=== PATIENT | male | born 1970 | race African-American/Black ===

== ENCOUNTER 2025-03-31 13:02 | Outpatient (CLI) | payer MEDICARE, MEDICAID, SELFPAY ==
--- NOTE | ~2025-03-31 | PE_ITS ---
EXAMINATION: PET_PETPSMAST_PT DATE: 03/31/2025 15:04 INDICATION: Prostate cancer TECHNIQUE: 4.54 mCi of Illucix Ga-[id number]) was administered i.v. Low dose computed tomog kerry (CT) images were acquired from the base of the brain to the base of the brain to the proximal t highs for attenuation correction and anatomic localization. Positron emission tomography (PET) images were acquired in the same distribution beginning 86 minutes after injection. Images including fused PET/CT images were reconstructed in axial, coronal, and sagittal planes. Automated exposure control t [employer] was employed. The dose-length product was 558.79mGy-cm. COMPARISON: None FINDINGS: Head/neck: Typical pattern of symmetric physiologic increased activity in the lacrimal, parotid and submandibula r glands as well as along the mucosa of the nasal and oral cavities, pharynx and hypopharynx. No path ologically enlarged cervical lymphadenopathy or suspicious foci of increased uptake in the visualized head or neck. Chest: Moderate emphysema with dependent atelectasis in bilateral lower lobes. 3 mm right lower lobe nodule without abnormal PSMA uptake. Heart size is normal. Atherosclerotic coronary artery calcific location . No pericardial effusion. Mildly aneurysmal ascending thoracic aorta measuring up to 4.2 cm in maxim al diameter. No pathologically enlarged or PSMA avid thoracic lymphadenopathy. Abdomen/pelvis/proximal thighs: Physiologic renal accumulation and excretion of activity in the kidneys, bladder and along portions o f ureters. Prostatomegaly measuring 4.2 x 3.8 cm. Small focus of increased uptake at the right breaker mechanic ior margin of the prostate with maximal SUV of 4.1. Normal degree and slightly heterogenous pattern o f increased uptake throughout the liver and spleen without radiologic correlate or dominant PSMA avid lesion. The gallbladder, pancreas and bilateral adrenal glands are normal. Moderate uptake scattered throughout the bowels with typical duodenal and proximal jejunal predominance and without radiologic correlate, also likely physiologic. Normal appendix. No other abnormal foci of increased uptake or p athologically enlarged lymphadenopathy in the abdomen, pelvis or proximal thighs. Musculoskeletal: No suspicious lytic, blastic or abnormally PSMA avid bone lesions. IMPRESSION: 1. Small focus of mild uptake at the left posterior aspect of the enlarged prostate consistent with m chhaya prostate cancer. No evident metastatic disease. 2. Moderate emphysema with 3 mm right lower lobe nodule without abnormal uptake. If the patient is lo w risk for lung cancer, no follow-up is needed. If the patient is high risk (i.e., history of smoking or asbestos or significant radiation exposure), optional follow-up chest CT could be considered at 1 2 months. 3. 4.2 cm ascending thoracic aortic aneurysm. Reviewed, dictated and finalized at location B. IMPRESSION: 1. Small focus of mild uptake at the left posterior aspect of the enlarged pros ragland consistent with memory prostate cancer. No evident metastatic disease. 2. Moderate emphysema with 3 mm right lower lobe nodule without abnormal uptake . If the patient is low risk for lung cancer, no follow-up is needed. If the pa tient is high risk (i.e., history of smoking or asbestos or significant radiati on exposure), optional follow-up chest CT could be considered at 12 months. 3. 4.2 cm ascending thoracic aortic aneurysm.
--- OUTSIDE RECORDS SUMMARY | 2025-03-31 13:56 | XMS_ITS | Clinical Summary ---
Author Organization [facility] Address [address] [place] [address] Care Team Providers Care Limo Driver Name Role Phone Unavailable Primary Care Provider Unavailabl e Source Comments [facility],non-owned Affiliates and Associated Physician Practices is amultiple site organization consisting of ambulatory clinics and hospital sitesin [place], [place], [place] and [place]. This disclosure is being madepursuant to the Care Everywhere program and may not contain all information available regarding this patient. Last updated 18.[facility] Allergies Active Allergy Reactions Criticality Noted Date Comments Penicillins Rash Medium 10/07/2016 Sulfa Drugs Other Medium 03/13/2011 Medications * Be aware that medications may not be up to date on this document. Alwaysverify current medications with the patient. amLODIPine (NORVASC) 10 MG tablet Take 10 mg by mouth once daily Active Cetirizine HCl (ZYRTEC PO) Active Immunizations Immunization Administration Dates Next Due iNFLUENZA VACCINE, RECOM-GRAY, QUADR. 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 Pulse - - Temperature 36.7 C (98 F) 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 Respiratory Rate - - Oxygen Saturation - - Inhaled Oxygen Concentration - - Weight 70 kg (154 lb 6 oz) 12/11/2021 1:35 PM CS T Height 170.2 cm (5' 7 ) 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 Body Mass Index 24.18 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 Plan of Treatment Health Maintenance Due Date Last Done Comments COLOGUARD (AGES 45-75) - COL ON CA SCREENING [address] COLONOGRAPHY - COLON CA SCREENING 1968 FIT - COLON CA SCREENING 1968 FLEX SIG - COLON CA SCREENING 1968 LIPID TESTING 1968 HIV SCREENING 1983 HEPATITIS C SCREENING 10/07/1986 DTAP/TDAP/TD VACCINES (1 - Tdap) 1987 HEPATITIS B VACCINE (1 of 3 - 19+ 3-dose series) 1987 PNEUMOCOCCAL VACCINE 50+ (1 of 1 - PCV) 2018 ZOSTER VACCINE (1 of 2) 2018 COVID-19 VACCINE ( - 2023-2 5 season) 2024 DEPRESSION SCREENING 12/02/2024 INFLUENZA VACCINE (Season Ended) 2025 12/11/19 22 COLONOSCOPY - COLON CA SCREENING 11/14/2031 11/14/20 21 Colorectal Cancer Screening 11/14/2031 HIB VACCINE Aged Out No longer eligi ble based on patient's age to complete this topic HPV VACCINE Aged Out No longer eligi ble based on patient's age to complete this topic MENINGOCOCCAL (Group B) VACC INE SHARED DECISION-MAKING Aged Out No longer eligibl e based on patient's age to complete this topic MENINGOCOCCAL GROUPS A/C/Y/W VACCINE Aged Out No longer eligible b ased on patient's age to complete this topic Insurance [employer]
--- OUTSIDE RECORDS SUMMARY | 2025-03-31 13:56 | XMS_ITS | Clinical Summary ---
Author Organization [facility] Address [address] [place] [address] Care Team Providers Care Process Maintenance Technician Name Role Phone Dawna Heredia PT Unavailable Unavailabl e Dony Mendoza OT Unavailable Unavailable Saravanan Cowan MD, Sundeep Pleitez Unavailable + Brooklyn Elizondo DO Unavailable [phone] Maik Leija MD Primary Care Provider + Nadine Marino MD Unavailable [phone] Allergies Active Allergy Reactions Criticality Noted Date Comments Penicillins Rash Medium 10/07/2016 Sulfa (Sulfonamide Antibiotics) Hives Medium 03/02 Medications atorvastatin (LIPITOR) 10 mg tabletIndication s:Cerebrovascula r accident (CVA) due to occlusion of left middle cerebral artery (HCC) Take 1 tablet (10 mg total) by mouth nightly 90 tablet 3 4 Active aspirin 81 mg chewable tabletIndication s:Cerebrovascula r accident (CVA) due to occlusion of left middle cerebral artery (HCC) Take 1 tablet (81 mg total) by mouth daily 90 tablet 3 4 Active cholecalciferol (VITAMIN D-3) 5,000 unit tabletIndication s:Vitamin D Deficiency Take 1 tablet (5,000 Units total) by mouth daily 90 tablet 3 4 Active Additional Information Patient taking differently:5,000 Units oralDaily (early AM), Indications: Vitamin D Deficiency, Informant: Self, Reported on 03/09/2025 amLODIPine (NORVASC) 10 mg tabletIndication s:Hypertension, essential Take 1 tablet (10 mg total) by mouth daily 90 tablet 3 4 Active multivit-min/fol ic/vit K/lycop (MEN'S MULTIVITAMIN ORAL)Indications :supplement Take 1 tablet by mouth every morning Active baclofen (LIORESAL) 10 mg tabletIndication s:Myelopathy (HCC) Take 1 tablet (10 mg total) by mouth 3 (three) times a day with meals 270 tablet 3 4 Active Additional Information Patient taking differently:10 mg oral 3 times daily with meals,Indications: Muscle Spasticity of Spinal Origin, Informant: Self, Reported on 03/09/2025 traZODone (DESYREL) 50 mg tabletIndication s:Insomnia secondary to chronic pain TAKE 1-2 TABLETS BY MOUTH NIGHTLY. 200 tablet 4 Active Additional Information Patient taking differently: 50 mg oral Nightly, Indications: insomnia associated with depression, Informant: Self, Reported on 03/09/2025 ginseng 100 mg capsuleIndicatio ns:supplement Take 500 mg by mouth as needed (supplement) Active ciprofloxacin (CIPRO) 500 mg tablet Take 1 tablet (500 mg total) by mouth 2 (two) times a day 6 tablet 5 Active predniSONE (DELTASONE) 20 mg tablet Take 2 tablets (40 mg) by mouth daily for 4 days, THEN 1.5 tablets (30 mg) daily for 4 days, THEN 1 tablet (20 mg) daily for 4 days. 18 tablet 5 025 Active Problems Problem Noted Date Diagnosed Date Elevated PSA 02/15/2025 Bilateral numbness and tingling of arms and legs 01/28/2025 Submandibular gland mass 12/03/2024 Bilateral inguinal hernia without obstruction or gangrene 11/19/2024 Umbilical hernia without obstruction and without gangrene 11/19/2024 Abnormality of gait and mobility 08/10/2024 Assessment & Plan (08/10/2024 12:23 AM CDT): - at risk for falls - here with walker, recommend consistent use of walker as assistive aid - has known myelopathy, followed by Neurology Mass of left submandibular region 05/07/2024 Assessment & Plan (08/10/2024 12:19 AM CDT): - recent diagnosis with lymphadenopathy noted on the left submandibular area physical examination - obtain CT of the soft tissue neck with results below, which recommended ultrasound soft tissue neck which was also obtained with results as shown below. - ENT consultation was recommended and was referred to ENT provider - obtained US Guided FNA as shown below he went to see the ENT provider after being referred for neck mass - mass of left submandibular region, he was seen on 05/07/2024, He agreed to the surgery, But then he deferred it to make it to his Dads anniversary, he was given antibiotics which did not resolve the swelling/mass. He needs to reach out to ENT to reschedule the previously planned surgery - Left Submandibular gland excision with Nerve Monitoring US Guided FNA 04/29/2024 Left submandibular gland lesion fine-needle aspiration under US guidance. The aspiration samples were submitted to surgical pathology . Cytology = Diagnosis: Submandibular gland, left, fine needle aspiration cytology: - Suspicious for malignancy ([place] category V). - See microscopic description. US Soft tissue neck 03/25 IMPRESSION: Approximately 1.1 cm lobulated solid nodule in the left submandibular gland. This is very suspicious for salivary gland neoplasm, possibly malignant. ENT consultation is recommended. Approximately 4 mm lymph node in the left neck at level 3. This shows no echogenic hilum. Whether this is reactive or neoplastic is unknown. Referral placed to ENT 03/25 CT Soft tissue neck 02/22 IMPRESSION: Emphysema. Very subtle fullness of the lower portion of the left submandibular gland perhaps due to a small mass. There are a few nonspecific lymph nodes in the left submandibular region and deep to the sternocleidomastoid muscle on the left. Ultrasound of the left submandibular gland and adjacent tissues is recommended for further evaluation. Recommend evaluation for annual lung cancer screening enrollment if the patient qualifies based on clinical factors and smoking history. Assessment & Plan (05/07/2024 2:31 PM CDT): Left Submandibular gland excision with Nerve Monitoring Anesthesia, bleeding, infection, injury to major and minor arteries, nerves and veins, scar formation, injury to marginal mandibular, hypoglossal and lingual nerve, benign versus malignant pathology and need for further treatment. Continue with Dental care Personal history of tobacco use 04/02/2024 Assessment & Plan (04/02/2024 12:20 PM CDT): Social History Tobacco Use Smoking Status Former Average packs/day: 0.2 packs/day for 13.0 years (2.6 ttl pk-yrs) Types: Cigars, Cigarettes Start date: 2004 Smokeless Tobacco Never - continue with abstinence Constipation 01/10/2024 Hypertension, essential 01/06/2024 Assessment & Plan (08/05/2024 12:32 PM CDT): Blood Pressure Management BP Readings from Last 3 Encounters: 08/05/24 110/78 07/28/24 114/79 05/07/24 131/88 Chronic condition Status - is adequately controlled. Current medications are: Amlodipien 10 mg daily Patient is compliant with medications. Patient denies any side effects or adverse side effects from the medication/s. Follow a low salt diet Monitor blood pressure regularly at home The ASCVD Risk score (Ligia SERRANO, et al., 2019) failed to calculate for the following reasons: The patient has a prior NM or stroke diagnosis Lab Results Component Value Date LDLCALC 84 04/02/2024 Lab Results Component Value Date GLUCOSE 99 04/02/2024 CALCIUM 9.3 04/02/2024 SODIUM 140 04/02/2024 POTASSIUM 4.0 04/02/2024 CO2 24 04/02/2024 CHLORIDE 107 04/02/2024 BUNSER 11 04/02/2024 CREATININE 0.88 04/02/2024 Assessment & Plan (04/02/2024 12:07 PM CDT): Blood Pressure Management BP Readings from Last 3 Encounters: 04/02/24 110/80 01/06/24 120/70 09/27/23 127/90 Chronic condition Status - is adequately controlled. Current medications are: Amlodipien 10 mg daily Patient is compliant with medications. Patient denies any side effects or adverse side effects from the medication/s. Follow a low salt diet Monitor blood pressure regularly at home The ASCVD Risk score (Ligia SERRANO, et al., 2019) failed to calculate for the following reasons: The patient has a prior NM or stroke diagnosis Lab Results Component Value Date LDLCALC 113 08/16/2023 Lab Results Component Value Date GLUCOSE 99 06/25/2023 CALCIUM 8.7 06/25/2023 SODIUM 142 06/25/2023 POTASSIUM 3.7 06/25/2023 CO2 26 06/25/2023 CHLORIDE 107 06/25/2023 BUNSER 9 06/25/2023 CREATININE 0.85 06/25/2023 Assessment & Plan (01/06/2024 8:57 AM INSULATION PACKER): Blood Pressure Management BP Readings from Last 3 Encounters: 01/06/24 120/70 09/27/23 127/90 07/15/23 117/76 Chronic condition Status - is adequately controlled. Current medications are: Amlodipien 10 mg daily Patient is compliant with medications. Patient denies any side effects or adverse side effects from the medication/s. Follow a low salt diet Monitor blood pressure regularly at home The ASCVD Risk score (Ligia SERRANO, et al., 2019) failed to calculate for the following reasons: The patient has a prior NM or stroke diagnosis Lab Results Component Value Date LDLCALC 113 08/16/2023 Lab Results Component Value Date GLUCOSE 99 06/25/2023 CALCIUM 8.7 06/25/2023 SODIUM 142 06/25/2023 POTASSIUM 3.7 06/25/2023 CO2 26 06/25/2023 CHLORIDE 107 06/25/2023 BUNSER 9 06/25/2023 CREATININE 0.85 06/25/2023 Myelopathy 01/06/2024 Assessment & Plan (08/10/2024 12:19 AM CDT): - fChronic condition, not at goal - per Neurology progressive myelopathy and stiffness since Jan 2022, MRI with a progressive lateral tractopathy. Treated with IV steroids and IVIG in April 2022. Exam with near full recovery aside from some lower back stiffness. He is on baclofen and Valium for the stiffness. He received 2 of 4 on the monthly IVIG. I am not sure why he was unable to complete the 3rd and 4th dose of IVIG and suggested he contact [facility] to see if he could still receive these - currently prescribed Baclofen 10 mg TID per Neurology - established with neurology at [facility] - Dr. Ahmadi - he wants to get back on IVIG treatments but reportedly had palmar skin peeling in prrior IVIG so being held - states he was even evaluated at [place] for this - has had significant recovery overall but has ongoing back pain - no longer on Cymbalta --> removed from medication list - reports in past has tried other medications Lyrica, Gabapentin which he did not tolerate - continue current management per neurology Assessment & Plan (04/13/2024 8:57 AM CDT): - following with Neurology - Dr. Coe - per Neurology progressive myelopathy and stiffness since Jan 2022, MRI with a progressive lateral tractopathy. Treated with IV steroids and IVIG in April 2022. Exam with near full recovery aside from some lower back stiffness. He is on baclofen and Valium for the stiffness. He received 2 of 4 on the monthly IVIG. I am not sure why he was unable to complete the 3rd and 4th dose of IVIG and suggested he contact [facility] to see if he could still receive these - currently prescribed Baclofen 20mg TID, no longer on Valium 5mg TID - he wants to establish with neurology at [facility], referral placed and has an appointment for 07/2024 - he wants to get back on IVIG treatments - states he was even evaluated at [place] for this - has had significant recovery overall - he was on Meloxicam and Duloxetine in past for pain in back, also tried Pregabalin 50 mg TID in the past --> restarted Cymbalta on prior visit - continue current management Assessment & Plan (01/10/2024 5:56 AM INSULATION PACKER): - following with Neurology - Dr. Coe - per Neurology progressive myelopathy and stiffness since Jan 2022, MRI with a progressive lateral tractopathy. Treated with IV steroids and IVIG in April 2022. Exam with near full recovery aside from some lower back stiffness. He is on baclofen and Valium for the stiffness. He received 2 of 4 on the monthly IVIG. I am not sure why he was unable to complete the 3rd and 4th dose of IVIG and suggested he contact [facility] to see if he could still receive these - currently prescribed Baclofen 20mg TID, Valium 5mg TID but not on valium 5 mg TID at this time - he wants to establish with neurology at [facility] - he wants to get back on IVIG treatments - states he was even evaluated at [place] for this - has had significant recovery overall - he was on Meloxicam and Duloxetine in past for pain in back, also tried Pregabalin 50 mg TID in the past --> will restart Cymbalta Vitamin D deficiency 01/06/2024 Assessment & Plan (08/05/2024 12:33 PM CDT): - chronic, better controlled - noted to have vitamin D deficiency on - most recent Vitamin D level is as shown below - currently back on Vitamin D3 5000IU daily - continue with current management Lab Results Component Value Date 25HYDROVITD 36 04/02/2024 25HYDROVITD 16 (L) 08/16/2023 Assessment & Plan (01/06/2024 9:12 AM INSULATION PACKER): - chronic, better controlled - noted to have vitamin D deficiency on - most recent Vitamin D level is as shown below - was on Vitamin D3 50,000 international units weekly - restart Vitamin D3 5000IU daily - recheck labs Lab Results Component Value Date 25HYDROVITD 16 (L) 08/16/2023 Lymphadenopathy of head and neck 01/06/2024 Assessment & Plan (05/08/2024 5:41 PM CDT): Left Submandibular gland excision with Nerve Monitoring Anesthesia, bleeding, infection, injury to major and minor arteries, nerves and veins, scar formation, injury to marginal mandibular, hypoglossal and lingual nerve, benign versus malignant pathology and need for further treatment. Continue with Dental care Assessment & Plan (04/13/2024 9:01 AM CDT): - recent diagnosis with lymphadenopathy noted on the left submandibular area physical examination - obtain CT of the soft tissue neck with results below, which recommended ultrasound soft tissue neck which was also obtained with results as shown below. - ENT consultation was recommended so ENT referral has been placed - order placed for US guided FNA of solid nodule so that results are available for ENT provider US Soft tissue neck 03/25 IMPRESSION: Approximately 1.1 cm lobulated solid nodule in the left submandibular gland. This is very suspicious for salivary gland neoplasm, possibly malignant. ENT consultation is recommended. Approximately 4 mm lymph node in the left neck at level 3. This shows no echogenic hilum. Whether this is reactive or neoplastic is unknown. Referral placed to ENT 03/25 CT Soft tissue neck 02/22 IMPRESSION: Emphysema. Very subtle fullness of the lower portion of the left submandibular gland perhaps due to a small mass. There are a few nonspecific lymph nodes in the left submandibular region and deep to the sternocleidomastoid muscle on the left. Ultrasound of the left submandibular gland and adjacent tissues is recommended for further evaluation. Recommend evaluation for annual lung cancer screening enrollment if the patient qualifies based on clinical factors and smoking history. Assessment & Plan (01/10/2024 5:55 AM INSULATION PACKER): - new, noted on left submandibular area - offered options with short term re-evaluation given recent finding vs imaging given he first noticed it 3-4 days ago, patient would like to proceed with imaging and be aggressive about it as he has a friend who was diagnosed with cancer, order placed for imaging, see orders placed Chronic bilateral low back pain without sciatica 05/23/2022 Lumbar radiculopathy 05/23/2022 DDD (degenerative disc disease), lumbar 05/23/20 Degenerative lumbar spinal stenosis 05/23/2022 Insomnia secondary to chronic pain 05/23/2022 Assessment & Plan (08/05/2024 12:44 PM CDT): - chronic condition, stable status/well controlled - currently on Trazodone 50 mg nightly as needed, take 1-2 nightly - continue current management Assessment & Plan (01/06/2024 9:10 AM INSULATION PACKER): - chronic condition, stable status - currently on Trazodone 50 mg nightly as needed, take 1-2 nightly - continue current management Lumbar facet arthropathy 05/23/2022 Spinal cord disorder 04/26/2022 Cervical disc disorder with radiculopathy of mid-cervical region 03/19/2022 Cerebrovascular accident (CV A) due to occlusion of middle cerebral artery 02/22/2022 Assessment & Plan (08/05/2024 12:38 PM CDT): - chronic condition, stable/controlled - hx of CVA, around 2020 - currently on Atorvastatin 10 mg nightly and aspirin 81 mg daily - BP is well controlled - continue with abstinence from tobacco use - continue current management MRI brain 01/2022 IMPRESSION: Subacute lacunar infarct in the posterior limb left internal capsule. Lab Results Component Value Date CHOL 153 04/02/2024 CHOL 170 08/16/2023 CHOL 144 02/21/2022 Lab Results Component Value Date HDL 59 04/02/2024 HDL 40 08/16/2023 HDL 37 (L) 02/21/2022 Lab Results Component Value Date LDLCALC 84 04/02/2024 LDLCALC 113 08/16/2023 LDLCALC 90 02/21/2022 LDL 115 07/27/2015 Lab Results Component Value Date TRIG 51 04/02/2024 TRIG 85 08/16/2023 TRIG 86 02/21/2022 Assessment & Plan (04/13/2024 8:50 AM CDT): - hx of CVA, around 2020 - currently on Atorvastatin 20 mg nightly and aspirin 81 mg daily --> restarted medication on last visit - BP is well controlled - continue with abstinence from tobacco use Lab Results Component Value Date LDLCALC 84 04/02/2024 MRI brain 01/2022 IMPRESSION: Subacute lacunar infarct in the posterior limb left internal capsule. Assessment & Plan (01/06/2024 1:05 PM INSULATION PACKER): - hx of CVA, around 2020 - he is no longer on Atorvastatin 20 mg nightly --> restart medication - currently has not been on aspirin 81 mg daily --> restart medication - will review chart - BP is well controlled MRI brain 01/2022 IMPRESSION: Subacute lacunar infarct in the posterior limb left internal capsule. 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 Severe malnutrition 05/17/2022 01/06/20 24 Screening for malignant neoplasm of colon 09/16/2021 01/10/2024 Overview (09/16/2021): Added automatically from request for surgery [id number] Hemorrhoids 08/23/2021 01/06/2024 Overview (08/23/2021): Added automatically from request for surgery [id number] Abscess of groin 03/19/2012 01/10/2024 Encounters Date Type Department Care Team Description 03/11/2025 2:40 PM CDT Lab [address] [address] 03/09/2025 12:07 PM CDT Anesthesia Event [facility] Operating Room [address] [place] [address] Fracisco Antonio MD 03/09/2025 12:05 PM CDT - 03/09/2025 1:05 PM CDT Surgery [facility] Operating Room [address] [place] [address] Mitchell Marley MD TRANSRECTAL ULTRASOUND FUSION GUIDED PROSTATE BIOPSY 03/09/2025 10:02 AM CDT - 03/09/2025 2:04 PM CDT Hospital Encounter [facility] Operating Room [address] [place] [address] Mitchell Marley MD Elevated PSA Discharge Disposition: Discharge to home or self care 03/04/2025 Orders Only [facility] Department of Otolaryngology Head-Neck Division [address] [place] [address] Maik Roland MD 03/03/2025 Telephone [facility] ([facility]) - [facility] ENT [address] [facility] 11th [place] [address] [place] [address] Jess Lambert MS 02/10/2025 Telephone [facility] [address] [facility] [address] [place] [phone] Cayden Ahamdi MD 02/05/2025 12:47 PM INSULATION PACKER - 02/05/2025 11:59 PM INSULATION PACKER Hospital Encounter [facility] [address] [place] [address] Myelopathy (HCC) Discharge Disposition: Discharge to home or self care 02/05/2025 12:47 PM INSULATION PACKER - 02/05/2025 11:59 PM INSULATION PACKER Hospital Encounter [facility] 1 [place] [address] Myelopathy (HCC) Discharge Disposition: Discharge to home or self care 01/28/2025 1:30 PM INSULATION PACKER Office Visit [facility] [address] [facility] [address] [place] [address] Cayden Ahmadi MD Myelopathy (HCC) (Primary Dx); Chronic bilateral low back pain without sciatica; Bilateral numbness and tingling of arms and legs 01/18/2025 4:00 PM INSULATION PACKER Office Visit [facility]) - [facility] ENT [address] [facility] [address] [place] [id number] Maik Roland MD Mass of left submandibular region (Primary Dx) 01/07/2025 2:15 PM INSULATION PACKER Office Visit [facility] Surgery [address] [facility] [address] [place] [address] Nadine Marino MD Postop check (Primary Dx) 01/04/2025 11:21 AM INSULATION PACKER - 01/04/2025 11:59 PM INSULATION PACKER Hospital Encounter [facility] [address] [id number] Cancer of submandibular gland (HCC) Discharge Disposition: Discharge to home or self care from Last 3 Months Immunizations Immunization Administration Dates Next Due Influenza, Quadrivalent, Rec ombinant, Egg Free, Preservative Free, Intramuscular 12/11/2021 Influenza, Quadrivalent, Split, Intramuscular Influenza, Quadrivalent, Spl it, Preservative Free, Intramuscular 01/06/2024 Influenza, Trivalent, Preservative Free, Intramu scular 01/02/2011 Influenza, Unspecified 09/01/2021 Pneumococcal Polysaccharide PPV23 01/02/2011 Surgical History Surgery Date Site/Laterality Comments HEMORRHOID SURGERY 12/02/2020 - 12/01/2021 LEG SURGERY 12/02/1981 - 12/01/1982 Left compound fracture repair COLONOSCOPY 12/02/2020 - 12/01/2021 HERNIA REPAIR 12/12/2024 Medical History Medical History Date Comments Hypertension Stroke (HCC) 2021 TIA - no residua l Penile condyloma acuminata 2012 History of fracture of leg left as a kid - compound fracture Umbilical hernia without obs truction and without gangrene Bilateral inguinal hernia wi thout obstruction or gangrene, recurrence not specified Myelopathy (HCC) Family History Medical History Relation Name Comments Prostate cancer Brother Prostate cancer Father Colon cancer Father's Brother Hypertension Maternal Grandmother Hypertension Mother Anesthesia problems Neg Hx Autoimmune disease Neg Hx Gait disorder Neg Hx Sarcoidosis Neg Hx Thyroid disease Neg Hx Relation Name Status Comments Brother Alive Father Father's Brother Maternal Grandmother Mother Alive Social History Tobacco Use Types Packs/Day Years Used Date Smoking Tobacco: Former Cigarettes Q uit: 2017 Cigars Passive Smoke Exposure: Never Smokeless Tobacco: Never Tobacco Cessation:Counseling Given: Not Answered Social Connection and Isolat ion Panel [NHANES] Answer Date Recorded In a typical week, how many times do you talk on the phone with family, friends, or neighbors? More than three times a week 04/18/2022 How often do you get togethe r with friends or relatives? More than three times a week 04/18/2022 How often do you attend chur ch or worship services? Never 04/18/2022 Do you belong to any clubs o r organizations such as adventism groups, unions, fraternal or athletic groups, or school groups? No 04/18/2022 How often do you attend meet ings of the clubs or organizations you belong to? Never 04/18/2022 Are you , , di vorced, , never , or living with a partner? Never 04/18/2022 AUDIT-C Answer Date Recorded Q1: How often do you have a drink containing alcohol? Never 03/09/2025 Q2: How many drinks containi ng alcohol do you have on a typical day when you are drinking? Patient does not drink Q3: How often do you have si x or more drinks on one occasion? Never 03/09/2025 Overall Financial Resource Strain (CARDIA) Answe r Date Recorded How hard is it for you to pa y for the very basics like food, housing, medical care, and heating? Not very hard 04/18/2022 PHQ-2 Answer Date Recorded PHQ-2 Total Score (If total score is 3 or more points, staff should administer the PHQ-9) 0 08/05/2024 [facility] - Occupational Stress Questionnaire Answer Date Recorded Do you feel stress - tense, restless, nervous, or anxious, or unable to sleep at night because your mind is troubled all the time - these days? Rather much 02/23/2022 Hunger Vital Sign Answer Date Recorded Within the past 12 months, y ou worried that your food would run out before you got the money to buy more. Never true 03/06/20 23 Within the past 12 months, t he food you bought just didn't last and you didn't have money to get more. Never true 03/06/2023 PRAPARE - Transportation Answer Date Re corded In the past 12 months, has l ack of transportation kept you from medical appointments or from getting medications? No 04/01 In the past 12 months, has l ack of transportation kept you from meetings, work, or from getting things needed for daily living? No 04/18/2022 Housing Stability Vital Sign Answer Judah e Recorded In the last 12 months, was t here a time when you were not able to pay the mortgage or rent on time? No 02/23/2022 In the last 12 months, how many places have you lived? 1 02/23/2022 In the last 12 months, was t here a time when you did not have a steady place to sleep or slept in a retirement (including now)? No 02/23/2022 Personal Safety Answer Date Recorded Have you ever been in or are you currently in a harmful physical or emotional relationship or is someone making you feel afraid or unsafe? Denies 03/09/2025 Sex and Gender Information Value Date Recorded Sex Assigned at Not on file Legal Sex Male 1:55 AM INSULATION PACKER Gender Identity Not on file Sexual Orientation Not on file Obstetrics History Last Filed Vital Signs Vital Sign Reading Time Taken Comments Blood Pressure 150/95 03/09/2025 1:40 PM CDT Pulse 80 03/09/2025 1:40 PM CDT Temperature 36.6 C (97.8 F) 03/09/2025 1:40 PM CDT Respiratory Rate 20 03/09/2025 1:40 PM CDT Oxygen Saturation 100% 03/09/2025 1:40 PM CDT Inhaled Oxygen Concentration - - Weight 59.9 kg (132 lb 0.9 oz) 03/09/2025 10:12 AM CDT Height 170.2 cm (5' 7 ) 03/09/2025 10:12 AM CDT Body Mass Index 20.68 03/09/2025 10:12 AM CDT Plan of Treatment Upcoming Encounters Date Type Department Care Team (Late st Contact Info) Description 04/16/2025 1:45 PM CDT Hospital Encounter [facility] [address] [place] [phone] Maik Roland MD [address] [place], [place] [id number] 04/16/2025 1:45 PM CDT Anesthesia Event [facility] [place] [id number] Kathie Noble, ENGINEERING LECTURER [address] [facility] [id number] [place] [address] 04/16/2025 1:45 PM CDT - 04/16/2025 4:55 PM CDT Surgery [facility] [address] [place] [phone] Maik Roland MD [address] [place] [address] EXCISION SUBMANDIBULAR GLAND Scheduled Procedures Name Priority Associated Diagnoses Date/Ti me EXCISION SUBMANDIBULAR GLAND Submandibular gland mass 04/16/2025 1:45 PM CDT Health Maintenance Due Date Last Done Comments Hepatitis C Screening 1970 DTaP/Tdap/Td Vaccine (1 - Tdap) 1979 Zoster Vaccine (1 of 2) 2018 Covid-19 Vaccine (3 - season) 2024 08/22/2021, 07/30/2021 Influenza Vaccine (Season Ended) 2025 01/06/2024, 12/11/2021, 09/01/2021, Additional history exists Depression Screening 08/05/2025 08/05/2024, 04/02/2024, 01/06/2024, Additional history exists Regular Well Visit/Exam 18-64 08/05/2025 08/05/2024 Prostate Cancer Screening-PSA 10/26/2026 10/26/2024, 08/16/2023, 04/13/2022 Colon Cancer Screening-Colonoscopy 11/14/2031 11/14/2021 Pneumococcal vaccine <65 Aged Out 01/02/2011 No longer eligible based on patient's age to complete this topic Hepatitis B Screening Completed 02/27/2019 , 09/29/2018, 09/03/2018 Colon Cancer Screening-CT Colonography Discontinued 11/14/2021 Colon Cancer Screening-DNA Stool Discontinued 11/14/2021 Colon Cancer Screening-FIT Discontinued 11/14/2021 Colon Cancer Screening-Sigmoidoscopy Discontinued 11/14/2021 Medical Devices Implanted Type Area Form Worker Device Identifier Shelf Expiration Date Model / Serial / Lot [employer] Progrip [id number] Self Fixate Flat Sheet Mesh Surgical Gita Pet Latex Free [id number] - [id number] Implanted:Qty : 1 on 12/14/2024 by Nadine Marino MD at [facility] Left: Inguinal [employer] [id number] 01/01/2027 [id number] / / [id number] [employer] Progrip [id number] Self Fixate Flat Sheet Mesh Surgical Gita Pet Latex Free [id number] - [id number] Implanted:Qty : 1 on 12/14/2024 by Nadine Marino MD at [facility] Right: Inguinal [employer] [id number] 01/01/2027 [id number] / / [id number] Procedures Procedure Name Priority Date/Time Associated Diagnosis Comments EGFR Routine 03/11/2025 2:39 PM CDT URINALYSIS, MICROSCOPIC ONLY Routine 03/11/2025 2:39 PM CDT DIFFERENTIAL AUTO Routine 03/11/2025 2:3 9 PM CDT CBC WITH AUTO DIFFERENTIAL Routine 03/11/2025 2:39 PM CDT COMPREHENSIVE METABOLIC PANEL Routine 03/11/2025 2:39 PM CDT URINALYSIS AND REFLEX TO MICROSCOPIC AND CULTURE Routine 03/11/2025 2:39 PM CDT SURGICAL PATHOLOGY Routine 03/09/2025 1: 20 PM CDT Elevated PSA URONAV GUIDED PROSTATE BIOPSY 03/09/2025 12:07 PM CDT Elevated PSA Special Needs URONAV FORTEC CONF#[id number] MRI THORACIC SPINE W WO CONTRAST Schedule BEHZAD, Read Routine (Patient lives out of area) 02/05/2025 2:25 PM INSULATION PACKER Myelopathy (HCC) MRI LUMBAR SPINE W WO CONTRAST Schedule BEHZAD, Read Routine (Patient lives out of area) 02/05/2025 2:10 PM INSULATION PACKER Myelopathy (HCC) CT SOFT TISSUE NECK W CONTRAST Schedule BEHZAD, Read Routine (Patient lives out of area) 01/04/2025 12:06 PM INSULATION PACKER Cancer of submandibular gland (HCC) PSA SCREEN Routine 10/26/2024 9:17 AM INSULATION PACKER COLONOSCOPY 11/14/2021 1:05 PM INSULATION PACKER from Last 3 Months or Most Recently Relevant to Health Maintenance Results * eGFR (03/11/2025 2:39 PM CDT) eGFR >90 >=60 mL/min/1. 73 m2 Comment: Interpretive Data Reference Interval Normal >/= 90 mL/min/1.73m2 Mildly decreased* 60 - 89 mL/min/1.73m2 Mildly to moderately decreased 45 - 59 mL/min/1.73m2 Moderately to severely decreased 30 - 44 mL/min/1.73m2 Severely decreased 15 - 29 mL/min/1.73m2 Kidney Failure < 15 mL/min/1.73m2 *Relative to young adult level Estimated glomerular filtration rate is determined by the 2020 CKD-EPI equation recommended by the National Kidney Foundation (A Unifying Approach to GFR Estimation: Recommendations of the NKF-ASK Task Force on Reassessing the Inclusion of Race in Diagnosing Kidney Disease, JASN 2020). The CKD-EPI equation should not be used for patients with unstable renal function and has not been validated in children and those over 70. Current interpretive data was last reviewed 2021. Blood 03/11/2025 2:39 PM CDT 03/11/2025 8:21 PM CDT us Maik Leija MD LAB BLOOD ORDERABLES Fin al Result [facility] [address] Department of Laboratories [place], [place] [id number] * Differential, auto (03/11/2025 2:39 PM CDT) Neutrophil abs 3.66 1.50 - 6.50 K/cumm Imm gran abs 0.02 0.00 - 0.10 K/cumm [facility] Lymphocyte abs 2.88 0.80 - 3.30 K/cumm [facility] Monocyte abs 0.59 0.20 - 0.80 K/cumm [facility] Eosinophil abs 0.12 0.00 - 0.50 K/cumm [facility] Basophil abs 0.07 0.00 - 0.10 K/cumm [facility] Neutrophil pct 49.9 % [facility] Comment: Interpretive Data Percent cell count reference ranges are not reported, since discordance with absolute values may lead to misinterpretation of CBC data. Current Interpretive Data was last revised on 2018. Imm gran pct 0.3 % [facility] Comment: Interpretive Data Percent cell count reference ranges are not reported, since discordance with absolute values may lead to misinterpretation of CBC data. Current Interpretive Data was last revised on 2018. Lymphocyte pct 39.2 % [facility] Comment: Interpretive Data Percent cell count reference ranges are not reported, since discordance with absolute values may lead to misinterpretation of CBC data. Current Interpretive Data was last revised on 2018. Monocyte pct 8.0 % [facility] Comment: Interpretive Data Percent cell count reference ranges are not reported, since discordance with absolute values may lead to misinterpretation of CBC data. Current Interpretive Data was last revised on 2018. Eosinophil pct 1.6 % [facility] Comment: Interpretive Data Percent cell count reference ranges are not reported, since discordance with absolute values may lead to misinterpretation of CBC data. Current Interpretive Data was last revised on 2018. Basophil pct 1.0 % [facility] Comment: Interpretive Data Percent cell count reference ranges are not reported, since discordance with absolute values may lead to misinterpretation of CBC data. Current Interpretive Data was last revised on 2018. Blood 03/11/2025 2:39 PM CDT 03/11/2025 2:39 PM CDT Maik Leija MD LAB BLOOD ORDERABLES [facility] al Result [facility] [address] Department [place] [address] * (ABNORMAL) Urinalysis reflex to microscopic and culture Urine (03/11/2025 2:39 PM CDT) Color, ur Straw Yellow Clarity, ur Clear Clear [facility] Specific gravity, ur 1.008 1.003 - 1.030 [facility] pH, urine 6.0 [facility] Comment: Interpretive Data U rine pH is affected by diet, medications, systemic acid-base disturbances, and renal tubular function. pH may affect urinary stone formation. For example, urine pH below 6.0 may help reduce the tendency for calcium phosphate stones and pH greater than 6.0 may reduce the tendency for uric acid stone formation. Source: [facility] Current Interpretive Data was last revised on 2017 Protein, ur ql Negative Negative [facility] Glucose, ur ql Negative Negative [facility] Ketones, ur Negative Negative [facility] Bilirubin, ur Negative Negative [facility] Blood, ur Trace(A) Negative [facility] Urobilinogen, ur <2.0 <2.0 mg/dL [facility] Nitrite, ur Negative Negative [facility] Leukocyte esterase, ur Negative Negative [facility] UA reflex comment Reflex to microscopic UA will be performed. [facility] Urine 03/11/2025 2:39 PM CDT 03/11/2025 2:39 PM CDT Maik Leija MD LAB MICROBIOLOGY - GENER AL ORDERABLES Final Result Performing Organization Address [facility] Co de Phone Number [place] [address] Department [place] [address] * (ABNORMAL) CBC with auto differential (03/11/2025 2:39 PM CDT) WBC 7.34 3.80 - 9.90 K/cumm Hgb 15.6 13.0 - 17.5 g/dL [facility] Hct 49.2 38.9 - 50.3 % [facility] Plt 364 150 - 400 K/cumm [facility] MPV 10.6 9.1 - 12.3 fL [facility] RBC 5.68 4.30 - 5.80 M/cumm [facility] MCV 86.6 81.3 - 96.4 fL [facility] MCH 27.5 27.1 - 33.3 pg [facility] MCHC 31.7(L) 32.3 - 35.7 g/dL [facility] RDW CV 13.2 11.1 - 14.9 % [facility] RDW SD 41.4 35.7 - 48.1 fL [facility] NRBC abs 0.00 0.00 - 0.01 K/cumm [facility] Blood 03/11/2025 2:39 PM CDT 03/11/2025 2:39 PM CDT us Maik Leija MD LAB BLOOD ORDERABLES Fin al Result Performing Organization Address [facility] Co de Phone Number [place] [address] Department [place] [address] * Urinalysis, microscopic only (03/11/2025 2:39 PM CDT) WBC, ur 0-5 0 - 5 /HPF RBC, ur 0-2 0 - 2 /HPF [facility] Culture Reflex Comment Reflex conditions for urine culture (WBC >10) not met. [facility] Urine 03/11/2025 2:39 PM CDT 03/11/2025 6:55 PM CDT Maik Leija MD LAB URINE ORDERABLES Fin al Result [facility] [address] Department [place] [address] * Comprehensive metabolic panel (03/11/2025 2:39 PM CDT) Sodium 139 135 - 145 mmol/L Potassium, pl 3.9 3.3 - 4.9 mmol/L [facility] Chloride 104 97 - 110 mmol/L [facility] CO2 27 22 - 32 mmol/L [facility] Anion gap 8 2 - 15 mmol/L [facility] BUN 9 6 - 25 mg/dL [facility] Creatinine 0.82 0.80 - 1.30 mg/dL [facility] Glucose 75 70 - 199 mg/dL [facility] Comment: Interpretive Data Fasting glucose >/= 126 mg/dl is diagnostic for diabetes. Fasting is defined as no caloric intake for at least 8 hours. Fasting glucose between 100 mg/dl to 125 mg/dl is diagnostic of prediabetes. In a patient with classic symptoms of hyperglycemia or hyperglycemic crisis, a random glucose >/= 200 mg/dl is diagnostic for diabetes. In the absence of unequivocal hyperglycemia, results should be confirmed by repeat testing. The classification and Diagnosis of Diabetes Diabetes Care 202; 46: S19-S40. Current interpretive data was last revised 2022. Calcium 9.3 8.5 - 10.3 mg/dL [facility] Bilirubin, total 0.5 0.1 - 1.2 mg/dL [facility] Protein, pl 7.2 6.5 - 8.5 g/dL [facility] Albumin 4.2 3.5 - 5.0 g/dL [facility] Alk phos 86 40 - 130 Units/L [facility] ALT 23 7 - 55 Units/L [facility] AST 29 10 - 50 Units/L [facility] Blood 03/11/2025 2:39 PM CDT 03/11/2025 2:39 PM CDT us Maik Leija MD LAB BLOOD ORDERABLES Fin al Result [facility] [address] Department [place] [address] * Surgical pathology (03/09/2025 1:20 PM CDT) Tissue (Prostate, Needle Biopsy) 03/09/2025 11:56 AM CDT Tissue specimen (specimen) (Prostate, Needle Biopsy) 03/09/2025 11:56 AM CDT Tissue specimen (specimen) (Prostate, Needle Biopsy) 03/09/2025 11:56 AM CDT Tissue specimen (specimen) (Prostate, Needle Biopsy) 03/09/2025 11:56 AM CDT Tissue specimen (specimen) (Prostate, Needle Biopsy) 03/09/2025 11:56 AM CDT Tissue specimen (specimen) (Prostate, Needle Biopsy) 03/09/2025 11:56 AM CDT Tissue specimen (specimen) (Prostate, Needle Biopsy) 03/09/2025 11:56 AM CDT Tissue specimen (specimen) (Prostate, Needle Biopsy) 03/09/2025 11:56 AM CDT Tissue specimen (specimen) (Prostate, Needle Biopsy) 03/09/2025 11:56 AM CDT Tissue specimen (specimen) (Prostate, Needle Biopsy) 03/09/2025 11:56 AM CDT Tissue specimen (specimen) (Prostate, Needle Biopsy) 03/09/2025 11:56 AM CDT Tissue specimen (specimen) (Prostate, Needle Biopsy) 03/09/2025 11:56 AM CDT Tissue specimen (specimen) (Prostate, Needle Biopsy) 03/09/2025 11:59 AM CDT Narrative PATHOLOGY REPLACED BY [facility] ([facility]) - 03/12/2025 1:21 PM CDT EPIC results best viewed via link to PDF [facility] Department of Pathology [address] [place] [id number] Note to Patients: This report may contain a detailed description of human tissue sent by a health care provider to the laboratory for pathologic evaluation. The content of this report is essential for diagnosis and may provide important critical findings. This information may be unfamiliar to patients to review without a medical professional present. It is advised that the patient review this report in the presence of a health care provider who can answer questions and explain the details. Final Report Patient Name: CLIVE RIOJAS Address: [address] [place] [id number] Gender: M : 1970 (Age: 54) Service: Surgery Location: [facility] Hospital #: [id number] Patient Type: [facility] Taken: 03/09/2025 Received: 03/10/2025 Accessioned: 03/10/2025 Reported: 03/12/2025 Physician(s):Mitchell Vieira MD Diagnosis: A. Prostate, right lateral base, needle biopsy- Benign prostate tissue B. Prostate, right medial base, needle biopsy- Benign prostate tissue C. Prostate, right lateral mid, needle biopsy- Benign prostate tissue D. Prostate, right medial mid, needle biopsy- Benign prostate tissue E. Prostate, right lateral apex, needle biopsy- Benign prostate tissue F. Prostate, right medial apex, needle biopsy- Prostate tissue G. Prostate, left lateral base, needle biopsy- Prostatic acinar adenocarcinoma, Nimisha grade 3+3=6, grade group 1 Minute focus < 1 mm in 13mm core H. Prostate, left medial base, needle biopsy- Prostatic acinar adenocarcinoma, [employer] grade 3+4=7, grade group 2 4mm focus in 20mm core; Gr 4 approximately 50% total tumor volume I. Prostate, left lateral mid, needle biopsy- Benign prostate tissue J. Prostate, left medial mid, needle biopsy- Benign prostate tissue K. prostate, left lateral apex, needle biopsy- Benign prostate tissue L. Prostate, left medial apex, needle biopsy- Benign prostate tissue M. Prostate, region of interest, needle biopsy- Prostatic acinar adenocarcinoma, [employer] grade 4+3=7, grade group 3 2 mm focus in fragmented 2.3 mm core fragments; grade 4 approximately 60% total tumor volume Nadege Canseco M.D. Report Electronically Reviewed and Signed Out By Nadege Canseco M.D. 03/12/2025 13:21:17 Specimen(s) Received: A: Right lateral base B: Right medial base C: Right lateral mid D: Right medial mid E: Right lateral apex F: Right medial apex G: Left lateral base H: Left medial base I: Left lateral mid J: Left medial mid K: Left lateral apex L: Left medial apex M: Prostate biopsy - region of interest Microscopic Description: Microscopic examination corroborates the diagnosis. PIN4 IHC cocktail was performed on parts B, C, G, H, K and M to facilitate each diagnosis. Dr. Ackerman has reviewed select portions of this case and concurs with the interpretation. Clinical History: Elevated PSA. Transrectal ultrasound fusion guided prostate biopsy - Uronav Fortec. Gross Description: The specimen is submitted in thirteen containers labeled CLIVE RIOJAS . A. The first container is labeled right lateral base . It is 1 core of womack tissue measuring 1 cm. Entirely in A. B. The second container is labeled right medial base . It is 1 core of womack tissue measuring 1.5 cm. Entirely in B. C. The third container is labeled right lateral mid . It is 1 core of womack tissue measuring 1.0 cm. Entirely in C. D. The fourth container is labeled right medial mid . It is 1 core of womakc tissue measuring 1.8 cm. Entirely in D. E. The fifth container is labeled right lateral apex . It is 1 core of womack tissue measuring 0 1.5 cm. Entirely in E. F. The sixth container is labeled right medial apex . It is 1 core of womack tissue measuring 1.2 cm. Entirely in F. G. The seventh container is labeled left lateral base . It is 1 core of womack tissue measuring 1.3 cm. Entirely in G. H. The eighth container is labeled left medial base . It is 1 core of womack tissue measuring 2.0 cm. Entirely in H. I. The ninth container is labeled left lateral mid . It is 1 core of womack tissue measuring 1.1 cm. Entirely in I. J. The tenth container is labeled left medial mid . It is 1 core of womack tissue measuring 1.3 cm. Entirely in J. K. The eleventh container is labeled left lateral apex . It is 1 core of womack tissue measuring 1.4 cm. Entirely in K. L. The twelfth container is labeled left medial apex . It is 1 core of womack tissue measuring 1.5 cm. Entirely in L. M. The thirteenth container is labeled prostate biopsy region of interest . It is 5 strand-like cores of womack tissue between 0.2 and 1.0 cm. Entirely in M. T.A. Meño Larson P.A./Nadege Canseco M.D. REPORT IMAGES AND SCANNED DOCUMENTS, IF INCLUDED, ONLY VIEWABLE IN PDF VERSION OF REPORT The performance characteristics of some immunohistochemical stains, fluorescence in-situ hybridization tests and immunophenotyping by flow cytometry cited in this report (if any) were determined by the Surgical Pathology Department at [facility] as part of an ongoing quality and reliability engineer program and in compliance with federally mandated regulations drawn from the Clinical Laboratory Improvement Act of 1988 (CLIA '88). Some of these tests rely on the use of analyte specific reagents and are subject to specific labeling requirements by the US Food and Drug Administration. Such diagnostic tests may only be performed in a facility that is certified by the Department of Health and Human Services as a high complexity laboratory under CLIA '88. The FDA has determined that such clearance or approval is not necessary. This test is used for clinical purposes. It should not be regarded as investigational or for research. Nevertheless, federal rules concerning the medical use of analyte specific reagents require that the following disclaimer be attached to the report: This test was developed and its performance characteristics determined by the Surgical Pathology Department [facility]. It has not been cleared or approved by the U. S. Food and Drug Administration. Note for decalcified specimens: This assay has not been validated on decalcified tissues. Results should be interpreted with caution given the possibility of false negativity on decalcified specimens Mitchell Vieira MD LAB PATHOLOGY ORDERABLES Final Result [facility]OLOGY [facility] ([facility]) [address] [place] [address] * MRI Thoracic Spine W WO Contrast (02/05/2025 2:25 PM INSULATION PACKER) Anatomical Region Laterality Modality Spine N/A Magnetic Resonan ce 02/05/2025 2:25 PM INSULATION PACKER Narrative 02/05/2025 2:38 PM INSULATION PACKER EXAM DESCRIPTION: MRI THORACIC SPINE W WO CONTRAST REASON FOR STUDY: Myelopathy, chronic, thoracic spine, myelopathy. weakness of lower extremities December' pt been suffering with chronic back pain; woke up one morning couldn't move out of bed; the pain has affected his walking, weakening the legs to the point that he's using a walker. Myelopathy suspected; Hx of PT Motion due to patient moving alot TECHNIQUE: Sagittal and Axial imaging includes T1, T2, STIR and gradient echo sequences. T1 post gadolinium sequences. CONTRAST TYPE/DOSE: 12mL of GADOTERATE MEGLUMINE 0.5 MMOL/ML INTRAVENOUS SOLUTION (SO) injected via intravenous COMPARISON: Thoracic spine MRI 05/02/2023 and 04/10/2022. Whole-body PET-CT dated 04/13/2022. Chest CT dated 04/11/2022. FINDINGS: ALIGNMENT: Anterior-posterior alignment is maintained. VERTEBRAE: No acute compression fracture in the thoracic spine. The T11 inferior endplate T1 hypointense, stir hyperintense signal is nonspecific but compatible with a Schmorl's node with edema. HARDWARE: None in the spine. CORD: The evaluation is limited by prominent pulsation related artifact. The longitudinally oriented T2 hyperintense cord signal as noted on the previous MRI dated 05/02/2023. There is no enhancing cord lesion. The enhancing signal in the posterior epidural space from T4 T5 through T8 is nonspecific but similar when compared to the previous MRI dated 04/10/2022 and could just be visualization of the epidural venous plexus. No progressive mass effect. Attention on follow-up. THORACIC DISCS: T10-T11: Disc bulge eccentric to the right neural foramen with right neural foraminal narrowing. No significant spinal canal or left neural foraminal narrowing. T11-T12: Disc bulge towards the left neural foramen with left neural foraminal narrowing. No significant spinal canal or right neural foraminal narrowing. At the remainder thoracic levels no significant disc bulge or spinal canal stenosis. SOFT TISSUES: No soft tissue masses. LOWER CERVICAL: Incompletely imaged. No high-grade spinal canal stenosis. UPPER LUMBAR: Incompletely imaged. Better assessed on the concurrently obtained lumbar spine MRI. IMPRESSION: 1. The faint longitudinally oriented thoracic cord signal as noted on the previous MRI dated 05/02/2023. There is no associated postcontrast enhancement. 2. Mild degenerative changes are again seen. No significant spinal canal stenosis. 3. Additional findings as above. THIS IS AN ELECTRONICALLY VERIFIED FINAL REPORT 02/05/2025 2:38 PM - Electronically signed by Jose Hicks D.O. AP: AP Report ID: [id number] Reading Location: [place] [address] Procedure Note Jose Hicks, DO - 02/05/2025 EXAM DESCRIPTION: MRI THORACIC SPINE W WO CONTRAST REASON FOR STUDY: Myelopathy, chronic, thoracic spine, myelopathy.weakness of lower extremities December' pt been suffering with chronic back pain; woke up onemorning couldn't move out of bed; the pain has affected his walking, weakening the legs to the point that he's using a walker. Myelopathy suspected; Hx of PT Motion due to patient moving alot TECHNIQUE: Sagittal and Axial imaging includes T1, T2, STIR and gradientecho sequences. T1 post gadolinium sequences. CONTRAST TYPE/DOSE: 12mL of GADOTERATE MEGLUMINE 0.5 MMOL/ML INTRAVENOUS SOLUTION (SO) injected via intravenous COMPARISON: Thoracic spine MRI 05/02/2023 and 04/10/2022. [id number] dated 04/13/2022. Chest CT dated 04/11/2022. FINDINGS: ALIGNMENT: Anterior-posterior alignment is maintained. VERTEBRAE: No acute compression fracture in the thoracic spine. The T11 inferior endplate T1 hypointense, stir hyperintense signal is nonspecificbut compatible with a Schmorl's node with edema. HARDWARE: None in the spine. CORD: The evaluation is limited by prominent pulsation related artifact. The longitudinally oriented T2 hyperintense cord signal as noted on the previous MRI dated 05/02/2023. There is no enhancing cord lesion. The enhancing signal in the posterior epidural space from T4 T5 through T8 is nonspecific but similar when compared to the previous MRI dated 04/10/2022nd could just be visualization of the epidural venous plexus. No progressive mass effect. Attention on follow-up. THORACIC DISCS: T10-T11: Disc bulge eccentric to the right neural foramen with rightneural foraminal narrowing. No significant spinal canal or left neural foraminal narrowing. T11-T12: Disc bulge towards the left neural foramen with left neuralforaminal narrowing. No significant spinal canal or right neural foraminalnarrowing. At the remainder thoracic levels no significant disc bulge or spinal canal stenosis. SOFT TISSUES: No soft tissue masses. LOWER CERVICAL: Incompletely imaged. No high-grade spinal canalstenosis. UPPER LUMBAR: Incompletely imaged. Better assessed on the concurrently obtained lumbar spine MRI. IMPRESSION: 1. The faint longitudinally oriented thoracic cord signal as noted onthe previous MRI dated 05/02/2023. There is no associated postcontrast enhancement. 2. Mild degenerative changes are again seen. No significant spinalcanal stenosis. 3. Additional findings as above. THIS IS AN ELECTRONICALLY VERIFIED FINAL REPORT 02/05/2025 2:38 PM - Electronically signed by Jose Hicks D.O. AP: AP Report ID: [id number] Reading Location: [place] [address] Cayden Ahmadi MD IMG MRI PROCEDURES Rosa l Result * MRI Lumbar Spine W WO Contrast (02/05/2025 2:10 PM INSULATION PACKER) Anatomical Region Laterality Modality Spine N/A Magnetic Resonan ce 02/05/2025 2:24 PM INSULATION PACKER Narrative 02/05/2025 2:52 PM INSULATION PACKER EXAM DESCRIPTION: MRI LUMBAR SPINE W WO CONTRAST REASON FOR STUDY: Myelopathy, chronic, lumbar spine, myelopathy. weakness of lower extremities December' pt been suffering with chronic back pain; woke up one morning couldn't move out of bed; the pain has affected his walking, weakening the legs to the point that he's using a walker. Myelopathy suspected; Hx of PT TECHNIQUE: Sagittal and Axial imaging includes T1, T1 post gadolinium, T2, and STIR sequences. CONTRAST TYPE/DOSE: 12mL of GADOTERATE MEGLUMINE 0.5 MMOL/ML INTRAVENOUS SOLUTION (SO) injected via intravenous COMPARISON: Lumbar spine MRI dated 04/10/2022 and 02/15/2022. Lumbar spine radiographs dated 01/24/2022. Whole-body PET-CT dated 04/13/2022. FINDINGS: SEGMENTATION: 5 yct-pms-iipjdiq lumbar type vertebral bodies. ALIGNMENT: The anterior-posterior alignment is similar when compared to the previous MRI dated 04/10/2022. VERTEBRAE: No acute compression fracture in the lumbar spine. Endplate degenerative changes and marginal spur formation favoring L5-S1. DISC HEIGHT: Intervertebral disc height loss favoring L5-S1. HARDWARE: None in the spine. CORD/CAUDA: Conus medullaris terminates at L1. Diminished anterior-dimension of the mid to lower bony spinal canal in keeping with congenitally shortened pedicles. Further tapering of the thecal sac relating to proliferation of epidural fat. LOWER THORACIC: Incompletely imaged. No high-grade spinal canal stenosis. INDIVIDUAL DISC LEVELS: L1-L2: No significant disc bulge, spinal canal or neural foraminal narrowing. L2-L3: No significant disc bulge, spinal canal or neural foraminal narrowing. L3-L4: Disc bulge with thickened ligamentum flavum and bilateral facet arthropathy. Flattening of the ventral thecal sac. Feer-pu-opechbfg neural foraminal narrowing. L4-L5: Disc bulge with marginal spur formation. Superimposed central disc protrusion. Thickened ligamentum flavum with facet arthropathy. Vwrc-rf-gyrdzmci spinal canal stenosis. Lateral recess effacement on both sides. Severe bilateral neural foraminal narrowing. L5-S1: Disc bulge with marginal spur formation. Superimposed central/left subarticular disc protrusion with annular fissure. Bilateral facet arthropathy. There is epidural lipomatosis. Mild spinal canal stenosis. Xbwf-pbmsezd-lamh-right lateral recess effacement with disc protrusion contacting the descending S1 nerve roots. Moderate left and mild right neural foraminal narrowing. IMPRESSION: 1. Pstn-et-wmqctomq lumbar disc degeneration with thickened ligamentum flavum and facet arthropathy superimposed on congenitally shortened pedicles as seen on the previous lumbar spine MRI dated 04/10/2022. The spinal canal stenosis is most noticeable at L4-L5. 2. Neural foraminal stenosis ranging up to severe at L4-L5 and to a lesser extent at L3-L4 and L5-S1. 3. Lateral recess stenosis and additional findings as above. THIS IS AN ELECTRONICALLY VERIFIED FINAL REPORT 02/05/2025 2:52 PM - Electronically signed by Jose Hicks D.O. AP: AP Report ID: [id number] Reading Location: [id number] Procedure Note HicksAdam higuerapit, DO - 02/05/2025 EXAM DESCRIPTION: MRI LUMBAR SPINE W WO CONTRAST REASON FOR STUDY: Myelopathy, chronic, lumbar spine, myelopathy.weakness of lower extremities December' pt been suffering with chronic back pain; woke up onemorning couldn't move out of bed; the pain has affected his walking, weakening the legs to the point that he's using a walker. Myelopathy suspected; Hx of PT TECHNIQUE: Sagittal and Axial imaging includes T1, T1 post gadolinium, T2,and STIR sequences. CONTRAST TYPE/DOSE: 12mL of GADOTERATE MEGLUMINE 0.5 MMOL/ML INTRAVENOUS SOLUTION (SO) injected via intravenous COMPARISON: Lumbar spine MRI dated 04/10/2022 and 02/15/2022. Lumbarspine radiographs dated 01/24/2022. Whole-body PET-CT dated 04/13/2022. FINDINGS: SEGMENTATION: 5 spe-dsl-fxaejwf lumbar type vertebral bodies. ALIGNMENT: The anterior-posterior alignment is similar when compared tothe previous MRI dated 04/10/2022. VERTEBRAE: No acute compression fracture in the lumbar spine. Endplate degenerative changes and marginal spur formation favoring L5-S1. DISC HEIGHT: Intervertebral disc height loss favoring L5-S1. HARDWARE: None in the spine. CORD/CAUDA: Conus medullaris terminates at L1. Diminished anterior-dimension of the mid to lower bony spinal canal in keeping with congenitally shortened pedicles. Further tapering of the thecal sacrelating to proliferation of epidural fat. LOWER THORACIC: Incompletely imaged. No high-grade spinal canalstenosis. INDIVIDUAL DISC LEVELS: L1-L2: No significant disc bulge, spinal canal or neural foraminalnarrowing. L2-L3: No significant disc bulge, spinal canal or neural foraminalnarrowing. L3-L4: Disc bulge with thickened ligamentum flavum and bilateral facet arthropathy. Flattening of the ventral thecal sac. Szbu-nl-edwjxcbqbevimn foraminal narrowing. L4-L5: Disc bulge with marginal spur formation. Superimposed central disc protrusion. Thickened ligamentum flavum with facet arthropathy. Sziv-ym-aahoaatw spinal canal stenosis. Lateral recess effacement on both sides. Severe bilateral neural foraminal narrowing. L5-S1: Disc bulge with marginal spur formation. Superimposed central/left subarticular disc protrusion with annular fissure. Bilateral facet arthropathy. There is epidural lipomatosis. Mild spinal canal stenosis. Npyz-nkqxiym-igyl-right lateral recess effacement with disc protrusion contacting the descending S1 nerve roots. Moderate left and mild rightneural foraminal narrowing. IMPRESSION: 1. Dixd-qo-qigguatf lumbar disc degeneration with thickened ligamentum flavum and facet arthropathy superimposed on congenitally shortenedpedicles as seen on the previous lumbar spine MRI dated 04/10/2022. The spinalcanal stenosis is most noticeable at L4-L5. 2. Neural foraminal stenosis ranging up to severe at L4-L5 and to alesser extent at L3-L4 and L5-S1. 3. Lateral recess stenosis and additional findings as above. THIS IS AN ELECTRONICALLY VERIFIED FINAL REPORT 02/05/2025 2:52 PM - Electronically signed by Jose Hicks D.O. AP: AP Report ID: [id number] Reading Location: [place] [address] Cayden Ahmadi MD IMG MRI PROCEDURES Rosa l Result * CT Neck Soft Tissue W Contrast (01/04/2025 12:06 PM INSULATION PACKER) Anatomical Region Laterality Modality Head and Neck N/A Computed Tomogra phy 01/04/2025 12:2 2 PM INSULATION PACKER Impressions 01/04/2025 12:22 PM INSULATION PACKER SIMILAR APPEARANCE TO PREVIOUS WITH ASYMMETRIC APPEARANCE THE LOWER POLE OF THE LEFT SUBMANDIBULAR GLAND WITH MILDLY EXPANSILE LOW-ATTENUATION MASSLIKE LESION WITHOUT ADENOPATHY. 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 FINDINGS: Comparison is made with study of 02/03/2024. Cuff Turner radiograph demonstrates patient to be partially edentulous. Mild cervical spondylosis with normal alignment the cervical spine. Prevertebral soft tissues normal. On the transaxial images: Visualized intracranial cavity normal. Normal the [place] of [place]ank[place]. Orbits normal. Nasopharyngeal and parapharyngeal soft tissue spaces normal. Prevertebral soft tissues normal. Normal vascular enhancement. The parotid salivary glands are symmetric and normal. The tongue and base of tongue appear to be normal. There is asymmetric appearance to the lower pole of the left submandibular gland with a rounded area of low attenuation within it measuring approximately 1.3 cm from front to back, 11 mm from side to side. Situated centrally within the left submandibular gland. There is no associated adenopathy. When compared with previous study, the area of low attenuation is similar. No similar findings on the right side. Infrahyoid neck demonstrates normal hyoid bone, laryngeal cartilages and thyroid gland. No adenopathy. Thoracic inlet and lung apices appear to be unremarkable. 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 FINDINGS: Comparison is made with study of 02/03/2024. Cuff Turner radiograph demonstrates patient to be partially edentulous. Mild cervical spondylosis with normal alignment the cervical spine. Prevertebral soft tissues normal. On the transaxial images: Visualized intracranial cavity normal. Normal the [place] of Shank[place]. Orbits normal. Nasopharyngeal and parapharyngeal soft tissue spaces normal. Prevertebral soft tissues normal. Normal vascular enhancement. The parotid salivary glands are symmetric and normal. The tongue and base of tongue appear to be normal. There is asymmetric appearance to the lower pole of the left submandibular gland with a rounded area of low attenuation within it measuring approximately 1.3 cm from front to back, 11 mm from side to side. Situated centrally within the left submandibular gland. There is no associated adenopathy. When compared with previous study, the area of low attenuation is similar. No similar findings on the right side. Infrahyoid neck demonstrates normal hyoid bone, laryngeal cartilages and thyroid gland. No adenopathy. Thoracic inlet and lung apices appear to be unremarkable. Coronal and sagittal imaging demonstrates similar findings IMPRESSION: SIMILAR APPEARANCE TO PREVIOUS WITH ASYMMETRIC APPEARANCE THE LOWER POLE OF THE LEFT SUBMANDIBULAR GLAND WITH MILDLY EXPANSILE LOW-ATTENUATION MASSLIKE LESION WITHOUT ADENOPATHY. Electronically signed by: Al Wills M.D. Maik Roland MD IMG CT PROCEDURES Final Result * (ABNORMAL) PSA screen (10/26/2024 9:17 AM INSULATION PACKER) PSA-Total 5.57(H) <=3.90 ng/mL Comment: Interpretive Data AGE SEX REFERENCE INTERVAL 0 minutes-150 years Female None 0 minutes-49 years Male None 50-59 years Male 0-3.90 60-69 years Male 0-5.40 70-79 years Male 0-6.20 80-150 years Male 0-6.20 The Rah PSA Total assay procedure was used. Results from different manufacturers or methods may not be comparable. Serial testing should be performed using the same method. Current interpretive data last revised 22. Blood 10/26/2024 9:17 AM INSULATION PACKER 10/26/2024 10:30 AM INSULATION PACKER us Maik Leija MD LAB BLOOD ORDERABLES Fin al Result Performing Organization Address City/State/[facility] Co de Phone Number [facility] [place]) [address] [facility] Department [place] [address] * COLONOSCOPY (11/14/2021 1:05 PM INSULATION PACKER) Anatomical Region Laterality Modality Other Narrative Procedure Note Kt Osorio MD - 11/14/2021 1:05 PM CST [facility] Patient Name: Clive Riojas Procedure Date: 11/14/2021 1:05 PM Date of : 1970 Admit Type: Outpatient Age: 51 Gender: Male Attending MD: Kt Osorio M.D. Room: REPLACED BY [facility] ENDOSCOPY ROOM 2 Note Status: Finalized Patient Profile: This is a 51 year old male. Procedure: Colonoscopy Indications: Screening for colorectal malignant neoplasm, Thisis the patient's first colonoscopy Referring MD: Gilbert Kaplan M.D. Providers: Kt Osorio M.D. Impression: - Diverticulosis in the sigmoid colon and in the ascending colon. There was no evidence ofdiverticular bleeding. - The examination was otherwise normal. - No specimens collected. Recommendation: - Discharge patient to home. - High fiber diet. - Continue present medications. - Repeat colonoscopy in 5-10 years forsurveillance. - Return to endoscopist in 1 week. Medicines: Propofol per Anesthesia Complications: No immediate complications. Estimated Blood Loss: Estimated blood loss: none. Procedure: Pre-Anesthesia Assessment: - Prior to the procedure, a History and Physicalwas performed, and patient medications and allergieswere reviewed. The patient's tolerance of previous anesthesia was also reviewed. The risks andbenefits of the procedure and the sedation options and risks were discussed with the patient. All questions were answered, and informed consent was obtained. Prior Anticoagulants: The patient has taken no previous anticoagulant or antiplatelet agents. ASA Grade Assessment: II - A patient with mild systemicdisease. After reviewing the risks and benefits, the patient was deemed in satisfactory condition to undergo the procedure. The benefits, risks and alternatives of theprocedure and sedation were discussed and informed consentwas obtained. All questions were answered. Please referto the signed informed consent document in the medical record. The scope was passed under direct vision.The Pediatric Colonoscope PCF-H190L [id number] was introduced through the anus and advanced to the the cecum, identified by appendiceal orifice andileocecal valve. The bowel preparation used was Miralax via split dose instruction. The bowel preparation usedwas bisacodyl tablets via split dose instruction. The colonoscopy was performed without difficulty. The patient tolerated the procedure well. The qualityof the bowel preparation was adequate to identifypolyps 6 mm and larger in size. Scope withdrawal time was9 minutes. The quality of the bowel preparation was evaluated using the BBPS ([place] Bowel Preparation Scale) with scores of: Right Colon = 2 (minoramount of residual staining, small fragments of stooland/or opaque liquid, but mucosa seen well), TransverseColon = 3 (entire mucosa seen well with no residual staining, small fragments of stool or opaqueliquid) and Left Colon = 3 (entire mucosa seen well with no residual staining, small fragments of stool oropaque liquid). The total BBPS score equals 8. Theileocecal valve, appendiceal orifice, and rectum were photographed. The entire colon was examined. Thebowel preparation used was GoLYTELY via single dose instruction. Bowel prep was administered using a single dose. Findings: The perianal examination was normal. One small-mouthed diverticulum was found in the sigmoid colon and ascending colon. There was no evidence of diverticular bleeding. The exam was otherwise without abnormality. Kt Osorio M.D. 11/14/2021 1:42:01 PM Number of Addenda: 0 Note Initiated On: 11/14/2021 1:05 PM Procedure Code(s): --- Professional --- 10171, Colonoscopy, flexible; diagnostic, including collection of specimen(s) by brushing or washing, when performed (separateprocedure) CPT copyright 2019 [employer]. All rights reserved. The codes documented in this report are preliminary and upon bow maker machine tender reviewmay be revised to meet current compliance requirements. Recognized by the [employer] for promoting quality in endoscopy Kt Osorio MD ENDOSCOPY PROCED URES Final Result from Last 3 Months or Most Recently Relevant to Health Maintenance Insurance MEDICARE IDPA AETNA SIG [id number] MEDICARE [facility] Advance Directives For more information, please contact: [phone] * Full Code (Latest Code Status on File) Date Activated Date Inactivated Comments 04/26/2022 3:53 PM 05/22/2022 3:23 PM * Full Code Date Activated Date Inactivated Comments 04/11/2022 12:58 AM 04/26/2022 3:24 PM * Full Code Date Activated Date Inactivated Comments 02/22/2022 6:25 PM 03/10/2022 3:36 PM * Full Code Date Activated Date Inactivated Comments 02/15/2022 11:18 PM 02/22/2022 6:14 PM * Full Code Date Activated Date Inactivated Comments 11/14/2021 12:36 PM 11/14/2021 6:44 PM Care Teams Process Maintenance Technician Relationship Specialty [place] [id number] [address] [facility] [address] [place] [address] PCP - General Internal Medicine 10/27/24 Dawna Heredia, PT Physical Therapist Physical Therapy 08/28/22 Dony Mendoza, OT Occupational Therapist Occupational Therapy 04/02/23 Sundeep Coe Jr., MD [address] [place] [address] Consulting Physician Neurology 01/06/24 Brooklyn Elizondo DO [address] [facility] [address] [facility] [address] [place] [address] Consulting Physician Otolaryngology 05/11/24 [place] [id number] [address] [place] [address] Surgeon Colon and Rectal Surgery 12/14/24
--- OUTSIDE RECORDS SUMMARY | 2025-03-31 13:56 | XMS_ITS | Encounter Summary ---
Author Organization [facility] Healthcare Address [address] [place] [address] Care Team Providers Care Customer Service Operator Name Role Phone Maik Leija MD Primary Care Provider + Dawna Heredia PT Unavailable Unavailabl e Dony Mendoza OT Unavailable Unavailable Macho Loyd MD Primary Care Provider Saravanan Cowan MD, Sundeep Pleitez Unavailable + Brooklyn Elizondo DO Unavailable [phone] Maik Leija MD Primary Care Provider + Nadine Marino MD Unavailable [phone] Encounter Details Date Type Department Care Team (Late st Contact Info) Description 04/26/2022 Telephone [facility] Physical Medicine and Rehabilitation [address] [place] [address] Cait De Luna, BRIM SETTER Social History Tobacco Use Types Packs/Day Years Used Date Smoking Tobacco: Never Cigars Smokeless Tobacco: Never Social Connection and Isolat ion Panel [NHANES] Answer Date Recorded In a typical week, how many times do you talk on the phone with family, friends, or neighbors? More than three times a week 04/18/2022 How often do you get togethe r with friends or relatives? More than three times a week 04/18/2022 How often do you attend [facility] or orthodox services? Never 04/18/2022 Do you belong to any clubs o r organizations such as moravian groups, unions, fraternal or athletic groups, or school groups? No 04/18/2022 How often do you attend meet ings of the clubs or organizations you belong to? Never 04/18/2022 Are you , , di vorced, , never , or living with a partner? Never 04/18/2022 AUDIT-C Answer Date Recorded Q1: How often do you have a drink containing alc ohol? Never 03/19/2022 Average Number of Drinks Not on file 022 Frequency of Binge Drinking Not on file 03/02 Overall Financial Resource Strain (CARDIA) Answe r Date Recorded How hard is it for you to pa y for the very basics like food, housing, medical care, and heating? Not very hard 04/18/2022 [facility] [place] [facility] - Occupational Stress [...] the money to buy more. Never true 04/18/20 22 Within the past 12 months, t he food you bought just didn't last and you didn't have money to get more. Never true 04/18/2022 PRAPARE - Transportation Answer Date Re corded [...] place to sleep or slept in a intermediate (including now)? No 02/23/2022 Sex and Gender Information Value Date Recorded Sex Assigned at Not on file Legal Sex Male 1:55 AM [employer] Gender Identity Not on file Sexual Orientation Not on file documented as of this encounter Last Filed Vital Signs Vital Sign Reading Time Taken Comments Blood Pressure - - Pulse - - Temperature - - Respiratory Rate - - Oxygen Saturation - - Inhaled Oxygen Concentration - - Weight 71.2 kg (157 lb) 04/26/2022 10:57 AM CDT Height 170.2 cm (5' 7 ) 04/26/2022 10:57 AM CDT Body Mass Index 24.59 04/26/2022 10:57 AM CDT documented in this encounter Miscellaneous Notes * Pre-Admission Screening - Cait De Luna SLP - 04/26/2022 11:24 AM CDT [facility] Physical Medicine and Rehabilitation Preadmission Screening Reason for Consult: Rebecca Riojas is a 51 y.o. male with a medical diagnosis of progressive weakness and Rehab Diagnosis: Lateral tractopathy (stiff-person syndrome spectrum) whose probable impairment code for inpatient rehabilitation is: Impairment Code Group: Neurologic Conditions Neurologic Conditions: Neuromuscular Disorders The following information was gathered for consideration and maintenance in the medical record to substantiate medical necessity for IRF level of care. Patient is currently at [facility] . The patient is being referred and recommended by Dr. Perez to be assessed both medically and functionally in regard to their premorbid functional capacity to determine whether they can benefit froma rehabilitation level of care offered by our facility. The following information is regarding the medical complexity and clinical risk factors that need to be considered for the appropriate management of the patient's care and recovery. RECOMMENDATIONS / PLAN: Goals for admission:to resolve all medical issues to optimal level and to improve patients functional independence to a SBA level overall for self cares, mobility and transfers with least restrictivedevice Likelihood of reaching these goals: Very Good Medical Prognosis: medical prognosis appears good due to ongoing medical issues and existing comorbidities Functional Prognosis: functional prognosis appears good for patient to recover to a SBA level overall for self cares, mobility and transfers with least restrictive device. Therapies required to achieve goals:The patient will benefit from integrated coordination of care from the following interdisciplinary services: Medical Supervision, 24 hours Rehabilitation Nursing, Physical Therapy, Occupational Therapy, Case Management, Social Work, Orthotics/Prosthetics Expected level of improvement is: very good Expected level of improvement at discharge is: SBA Strengths for achieving goals: Strengths: Able to tolerate intensive inpatient rehab program, Good family/social support Barriers to achieving goals: Barriers: Comorbidities Expected length of stay: Estimated Length of Stay: 21 days When medically stable, anticipated disposition: Anticipated destination post discharge from inpatient rehab: home with caregiver Information regarding the rehab process including risks/benefits and financial issues were discussed with the patient and/or family and they have agreed to accept rehabilitation risks and benefits. Payor Source: Primary: [facility] Secondary:Authorization number [id number] Case discussed with Dr. Romero on 04/20/22 @ 0900. Appropriateness for admission to the Inpatient Rehab Facility: yes The Pre-admission screen is an assessment of the patient's medical and functional status and has been reviewed by a rehab physician. It has been determined by the rehab physician that this patient will benefit from a comprehensive inpatient rehab admission to meet the identified goals and manage ongoing medical issues. The physician will provide documentation that supports an inpatient rehab admission including real and potential complications for which the patient is at risk with a plan to manage and avoid those risks HISTORY: Past Medical History: Past Medical History: Diagnosis Date ??? Hypertension ??? Penile condyloma acuminata 2012 ??? Stroke (CMS/HCC) ([facility]) Past Surgical History: History reviewed. No pertinent surgical history. Social History: Social History Socioeconomic History ??? Marital status: Single Tobacco Use ??? Smoking status: Never Smoker ??? Smokeless tobacco: Never Used Vaping Use ??? Vaping Use: Never used Substance and Sexual Activity ??? Drug use: Yes Frequency: 2.0 times per week Types: Marijuana ??? Sexual activity: Defer Social History Narrative Mr. Riojas lives in [place], [place]. 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 Social Determinants of Health Financial Resource Strain: Low Risk ??? Difficulty of Paying Living Expenses: Not very hard Food Insecurity: No Food Insecurity ??? Worried About Running Out of Food in the Last Year: Never true ??? Ran Out of Food in the Last Year: Never true Transportation Needs: No Transportation Needs ??? Lack of Transportation (Medical): No ??? Lack of Transportation (Non-Medical): No Stress: Stress Concern Present ??? Feeling of Stress : Rather much Social Connections: Socially Isolated ??? Frequency of Communication with Friends and Family: More than three times a week ??? Frequency of Social Gatherings with Friends and Family: More than three times a week ??? Attends Sabianism Services: Never ??? Active Member of Clubs or Organizations: No ??? Attends Club or Organization Meetings: Never ??? Marital Status: Never Housing Stability: Low Risk ??? Unable to Pay for Housing in the Last Year: No ??? Number of Places Lived in the Last Year: 1 ??? Unstable Housing in the Last Year: No Patient's Preferred Language: Vincentian Cultural Requests During Hospitalization: none conveyed Acute Conditions/Co-morbidities requiring Acute Rehab: Other (comment), Neurological disorder/exacerbation (Longitudinally Extensive Tractopathy;Neuropathic pain Muscle spasms, HTN, progressive bilateral lower extremity weakness, numbness and spasms) HPI: Patient with known history from previous admission as follows: 02/16/22: Patient was admitted after a fall at home with worsening pain bilateral lower extremities and back.Carlos Manuel Jackson NP History and Physical CHIEF COMPLAINT:bilateral lower extremity pain and worsening low back pain. HPI: Rebecca Riojas is a 51 y.o. black male with PMH of hypertension and unspecified outdoor immune disease who presented to the hospital with worsening bilateral lower extremity pain and worsening low back pain. The patient states that this started in October last year with some left shoulder pain. The the following month the patient states this went up to his neck. In the month of December the patient started having left leg pain and weakness hence he went to the emergency department at [facility]. He was discharged from [facility] Emergency Department and was given a follow-up with his PCP. He saw his PCP a few weeks ago and he was supposed to get MRI the end of this month. The patient states in the last few days the pain and the weakness has gone to right leg and yesterday he was not able to walk he was just dragging his right leg. He states his right leg feels heavy like his caring bricks . From yesterday the patient states that he has not been able to drive since he cannot move his right foot. Today he was using a walker and he fell hence he decided to come to the hospital. On review of records, the patient's has seen the technical instructor in the past and was being evaluatedfor possible SLE or mixed connective tissue disease. The patient is admitted for further evaluationand treatment MRI lumbar: IMPRESSION: Mild to moderate central and lateral recess stenosis at L4-L5 with disc bulge, facet arthropathy, short pedicles and epidural lipomatosis. Borderline central stenosis at L3-L4. L5-S1 disc degeneration with small annular fissure, facet arthropathy and mild foraminal stenosis but no central stenosis. Nodular bladder neck mural thickening bladder neck probably enlarged median prostate lobe but suggest urology consult Comments: Can only barely wiggle toes on right lower extremity, left lower extremity weak Comments: No paresthesia on bilateral lower extremity. ASSESSMENT: Bilateral lower extremity pain and weakness (R>L); Low back pain; Hypertension PLAN/RECOMMENDATIONS: Bilateral lower extremity pain and weakness (R>L); Low back pain; - chemistry and hematology unremarkable; - MRI lumbar-results as above; - frequent neuro checks; - neurology consulted; - physical therapy and occupational therapy Hypertension: - resume home medications, monitor blood pressure closely Current admission: patient admitted to [facility] on 04/10/22 with the follow medical issues: 04/11/22: Neurology General Service History and Physical History of Present Illness: Rebecca Riojas is a 51 y.o. right-handed male with history of hypertension who presents with several months of progressive bilateral lower extremity weakness, numbness and spasms. Hx obtained via patient (reliable), and chart review. At baseline, patient is independet in ADLs/IADLs (does not need assistance with eating or getting dressed), ambulates without assistance, and hasno baseline Neurologic deficits. 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 Patient states that his symptoms started in October 2021 with pain and stiffness in his left shoulder after carrying around heavy objects that was suspected to be secondary to rotator cuff injury associated with left-sided neck pain that radiated down his arm. Notably, these symptoms have remainedstable since October. Then, on December 10 2021, he developed numbness in the anterior left thigh, just above his knee, after standing from a bent position at work which progressed to a feeling of heaviness and weakness in his left lower extremity and he noticed that he was walking with a limp. He saw his PCP for his symptoms who prescribed him a Medrol dose pack without any relief. Two weeks later he developed similar symptoms on the right side that he describes as feeling like he -was- carrying bricks and he started using a cane. He was still able to walk and climb stairs with some difficulty. He had to stop driving, however, due to the feeling of heaviness in his legs. Eventually, the symptoms on his right lower extremity becamse worse than his left and he presented to his PCP again who planned to obtain an MRI. Incidentally, patient presented to [facility] Rheumatology (Dr. Jory Robertson) in early December for evaluation of intermittent rashes in the setting of prior positive SCIENTIFIC RECRUITER Ab (unclear titer). Patient reportedrashes for the prior ten years that patient described as red, raised and itchy other times with black spots that can occur at any place on his body and are brought on with heat or sun exposure, however at time of evaluation did not have a rash. It was felt that his rashes sounded like idiopathic urticaria vs urticarial vasculitis but given positive SCIENTIFIC RECRUITER Ab could be seen in SLE/MCTD and felt it reasonable for further autoimmune evaluation. He underwent evaluation on 12/11/2021 where EMILY/KATH/SSA/SSB /Antichromatin Ab/C3/C4 /CK/Aldolase/LDH/IgG/A/M were WNL and his antihistone Ab was moderately positive 2.3H and Anti-dsDNA was low positive 10H (normal 0 - 9). He later presented to [facility] ED on 01/24/2022 where exam was notable for diminished sensation in the left lower extremity with subsequent HCT without evidence of acute intracranial abnormality. He was discharged to follow-up with his PCP. In January, he had an episode where his legs gave out while he wasstanding in the kitchen and from there started to use a wheelchair intermittently mainly due to pain. He presented to [facility] for evaluation of his symptoms on 02/15/2022 where exam notablefor 3/5 strength as the bilateral hip flexors, 4/5 at the quadriceps, 2/5 at the tibialis anterior with increased sensitivity to pain and pinprick in the bilateral lower extremities up to the ankles with 3+ reflexes at the bilateral patellae. He had extensive workup including a1c, B12, Folate, Zn, Homocysteine, Vit E, ESR, CRP, SPEP, B2G WNL, TTE with reduced LV size but normal EF 63%, CTA Head/Neck that was unrevealing, bMRI that showed diffusion restriction in the left lentiform nucleus/globus pallidus favored to represent subacute infarct, MRI Total Spine that revealed L C5-6 herniation, mi ld to moderate stenosis of L4-5 with disc bulge and borderling cental stenosis at L3-L4 and nodularbladder neck mural thickening bladder neck concerning for enlarged median prostate lobe. EMG/NCV that revealed mild axonopathy of the bilateral peroneal nerves, an isolated right sural neuropathy, and early demyelination of the distal portion of the left tibial nerve. ?He was ultimately discharged on 02/22/2022 to inpatient rehab for a two week course with referral sent for follow-up with Urology and [facility] Neuromuscle. He saw NSGY DISABILITY REPRESENTATIVE about one month ago who planned for C spine epidural given likely C5-6 radiculopathy but did not think explained his lower extremity symptoms and planned to contact Dr. Romero to expedite his [facility] Neuromuscle follow-up. He states at that time he had started to use a wheelchair most of the time due to excruciating pain and pressure in his lower back that radiates, wrapping around to his abdomen with associated soreness at his bilateral flanks. He states that this pain used to be improved with bending his legs but now he is no longer able to make himselfcomfortable and the pain affects his sleep and is part of why he chose to present today. He has also developed spasms in his bilateral lower extremities described as tonic extension of his bilateral lower extremities with fanning of his toes that lasts for about 5 - 10 minutes each time and is better with movement, so he will pull his orthotics up to get relief. He notices he is able to induce the spasms when he is washing his pelvic area in the shower. Patient stated that he tried Gabapentin and Baclofen for his symptoms without relief. Lastly, he has noticed intermittent swelling in his bilateral lower extremities for which he uses compression hoses. He denies recent back or neck trauma, fevers, chills, night sweats, weight loss (though feels he has lost muscle bulk), difficulties with swallowing, drooling, oral/genital ulcers, nausea, vomiting, hiccups, shortness of breath, pain in his bilateral lower extremities, bowel/bladder incontinence, urinary retention, constipation with his last bowel movement 5/10 AM, or erectile dysfunction. He denies previous episodes of loss of vision or painful eye movements. He states that he remains with full strength in both arms and has mild difficulties writing due to numbness predominantly in his fingers (L>R) that started in the last few weeks, but no difficulties putting his arms above his head or transferring himself from a wheelchair using his hands. He is COVID-19 vaccinated x2 with Pfizer from July and August 2021. He endorses occasional marijuana use but denies tobacco use. He has no history of radiation exposure, tick-bites, history of homelessness or has never been to fdc. He had a colonoscopy in September 2021 that was unrevealing. His family history is significant for prostate cancer in his father diagnosed at approximately age 60 as well as in his brother diagnosed at age35 and colon cancer in an uncle diagnosed before age 50. He denies family history of gait difficulties, back problems or illnesses requiring a wheelchair, history of multiple sclerosis, autoimmune orthyroid disease. In [facility] ED, vitals were stable and within normal limits. Labs were notable for unremarkable CBC and CMP. MRI Total Spine revealed progression of lateral cord signal abnormality from C6- T11 with several areas of short segment sparing including the left T6 - T8. Radiology also commented that the signal abnormality in the left thalamus seen in January 2022 could have represented a process related to that occurring in the spinal cord. Subtle signal abnormality was also noted in the upper midbrain along the periaqueductal alvarez matter. He received ativan 1mg and morphine 4mg for pain and anxiety. Assessment and Plan Rebecca Riojas is a 51 y.o. right-handed male with a history of hypertension who presents withseveral months of progressive bilateral lower extremity weakness, numbness and spasms found to havelongitudinally extensive T2 lesion. Patient admission exam is notable for spastic paresis: upper motor signs bilateral lower extremity spasticity and weakness (R > L and flexors > extensors) and hyperreflexia with sustained clonus at the ankles with associated loss of pinprick and temperature sensation to above the ankles that are consistent with a myelopathy. His MRI spine reveals a longitudinally extensive C6 - T11 T2 lesion affecting the lateral cord concerning for a myelopathy/myelitis, specifically a tractopathy. The differential for lesions with selective tract involvement are typically associated with a metabolic (such as an adrenomyeloneuropathy), nutritional degenerative or even a paraneoplastic autoimmune myelopathy given the specific involvement of the lateral cord. Additionally, there is consideration for an immune mediated process such as NMOSD or MOGSD given presentation with longitudinally extensive lesion or neurosarcoidosis. Notably, patient prior evaluation with positive antihistone and dsDNA makes an inflammatory myelopathy such as that secondary to SLE or MCTD remain on the differential. It is also reasonable to evaluate for infectious autoimmune myelitis mimics such as HSV, VZV and CMV as well as consideration of vascular (sulcocommissural artery), primary neoplastic and inherited causes though less likely given time-course and prior unremarkable workup. Acutely, if possible alternative etiologies such as compression and infection are ruled other then could consider initiation of steroids for management. Given patient with prior extensive autoimmune and myopathic evaluation would favor obtaining CSF studies, serum studies for NMO, MOG as well as consideration for repeat electrodiagnostics and obtaining paraneoplastic panel with initiation of malignancy evaluation for further characterization. Additionally, would monitor patient for signs of autonomic, bowel or bladder dysfunction that can be associated with transverse myelitis. #Longitudinally Extensive Tractopathy #Neuropathic pain #Muscle spasms #Hypertension Past Medical History: ?? Hypertension ? Penile condyloma acuminata 2012 ?? Stroke ([facility]) ([facility]) 04/20/22: Neuromuscular Medicine Initial Consult Note ASSESSMENT AND RECOMMENDATIONS Rebecca Riojas is a 51 y.o. who presents for several months of progressive BLE weakness, sensory abnormalities, and muscle spasms. Symptoms were clearly progressive in first 4-5 months, though it is somewhat unclear from history whether trajectory has since hi a plateau. His examination is notable for relative sparing of upper extremities (some distal weakness and questionably decreased dexterity in right hand on finger taps), with impressive degree of weakness in BLE along with increased tone (adductor and hamstrings predominant) without spasticity. Also noted is significant BLE hyperreflexia, distal pinprick gradient, and abnormal vibratory sensation for age. Workup thus far has been extensive, with abnormal T2 spinal cord signal identified in the lateral tracts extending from C6-T11. PET/CT identified moderately increased FDG uptake, most prominently in the bilateral thigh and iliopsoas muscles. While this can be seen in inflammatory myopathies, the degree of symmetry is striking and may suggest instead increased metabolic demand as a compensatory response to his weakness. Nonetheless, differential would certainly include inflammatory/autoimmune and initial treatment with steroids is quite reasonable. Additional considerations for tractopathy would include paraneoplastic syndromes (workup reassuring thus far, with some labs still pending), nutritional deficiencies (not identified on labs to date), toxic exposure (no known history), and infection (labs negative). More rarely genetic diagnoses could be considered, however would defer investigation for these etiologies until after initial workup is completed. 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 In the interim, agree with ongoing treatment with steroids. Given high suspicion for inflammatory etiology, could certainly consider IVIG as an additional agent. Would continue symptomatic managementper current plans. Imaging Results: MRI Spine Thoracic and Lumbar W WO Contrast Result Date: 04/10/2022 1. Progression of lateral cord signal abnormality from C6-T11 with several areas of short segment sparing. Findings are concerning for a neurodegenerative/motor neuron disease such as amyotrophic lateral sclerosis (ALS). An inflammatory or immune mediated process such as neurosarcoidosis could potentially produce this appearance. Spinal cord infarct is considered unlikely given lack of volume loss . Additionally, demyelinating process is also considered unlikely. 2. Multilevel congenital and degenerative changes of the lumbar spine as detailed above and most pronounced at L4-L5 with severe bilateral neuroforaminal stenosis and moderate spinal canal stenosis. 3. No significant spinal or neuroforaminal stenosis in the thoracic spine. Of note, on the prior MRI head from January 2022 there was signal abnormality within the left thalamus which may have represented a subacute infarct though could potentially be related to the process involving the spinal cord. Additionally, subtle signal abnormality is noted in the upper midbrain along the periaqueductal alvarez matter (series 7 image 11 from MRI head February 27, 2022) which could also be related to this process. A nonemergent MRI head could beperformed for further evaluation given progression of changes in the spine. CT CAP W (04/11/2022): 1. ??No CT evidence of malignancy in tchest, abdomen, or pelvis. 2. ??Scattered sub-5 mm pulmonary nodules, nonspecific. 3. ??Mild centrilobular emphysema. ?? US Scrotum (04/12/2022): Normal scrotal sonogram and Doppler without testicular mass. ?? PET/CT FDG Skull to Thigh (04/13/2022): Symmetric moderately increased muscular FDG uptake, most pronounced in the bilateral thigh and iliopsoas muscles. ??As the patient, per report, has not recently exercised and was appropriately fasting before the examination, these findings are concerning for an inflammatory myositis, particularly in light of the recent increase in serum creatinine kinase levels. ?? Neurodiagnostics: EDx (04/16/2022): The study shows no evidence of myopathy. ??The slightly increased distal motor latencies in the tibial and peroneal nerves with the slightly slowed conduction velocities may be explained by the patient's low limb temperature; possibility of mild neuropathy cannot be totally ruled out.??The slowed left ulnar motor conduction velocity across the elbow is suggestive of mild left ulnar neuropathy around the elbow, potentially due to entrapment.?Reduced activation is a non-specific finding that may be seen with upper motor neuron lesion, reduced effort, or pain.? CSF (04/11/2022): RBC 691 > 44, Nuc 4 > 0, Protein 29, Glucose 71 IgG index (0.45) and OCB (3) within normal limits 04/23/22: Hospital Course: Rebecca Riojas??is a 51 y.o.??male?with a history of hypertension??who presents with??several months of progressive bilateral lower extremity weakness, numbness and spasms??found to have??longitudinally extensive T2 lesion. # Longitudinally Extensive Tractopathy Impression/etiology: Patient admission exam is notable for??spastic paresis:??upper motor signs??bilateral lower extremity spasticity and weakness (R > L and flexors > extensors) and hyperreflexia with sustained clonus at the ankles with associated loss of pinprick and temperature sensation to above the ankles?that are consistent with a myelopathy. His MRI spine reveals a longitudinally extensive??C6 - T11??T2 lesion affecting the lateral cord concerning for a myelopathy/myelitis, specifically a tractopathy. The differential for lesions with??selective tract involvement are typically associated with a metabolic (such as an adrenomyeloneuropathy),??nutritional??degenerative ??or even??a paraneoplastic autoimmune myelopathy given the specific??involvement of the lateral cord. ??Additionally, there is??consideration for an immune mediated process such as NMOSD or MOGSD given presentation with??longitudinally extensive lesion??or neurosarcoidosis.??Notably, patient prior evaluation with positive antihistone and dsDNA makes an inflammatory myelopathy high on the differential.??We also evaluated for infectious autoimmune myelitis mimics such as HSV, VZV and CMV as well as consideration of vascular??(sulcocommissural artery),??primary??neoplastic and inherited causes??though less likely given time-course and prior unremarkable workup Overall, the patient's presentation is felt to be most consistent with an autoimmune etiology, 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 While there was no specific antibody identified during admission (although he has several studies pending) to explain the patient's etiology, the patient was treated with immune-modulating therapy targeting autoimmune and inflammatory etiologies (5g IVMP, 2 g/kg IVIg). He was also treated symptomatically for muscle spasms (seebelow). He will followup with the [facility] (Dr. Swain) who saw the patient in-house as a consult. Work-Up: IMAGING - 02/16 (prior to arrival) MRI T Spine WO L C5-C6 disc herniation touches the ventral aspect of the cord and narrows L neural foramen - 04/11 MRI T & L Spine WWO progression of lateral cord signal abnormality from C6 - T11 sparingL T6 - T8, severe b/l neuroforaminal stenosis at L4-L5 -??04/11 CT Chest/Abdomen/Pelvis: 1. No CT evidence of malignancy in tchest, abdomen, or pelvis. 2. ??Scattered sub-5 mm pulmonary nodules, nonspecific. 3. Mild centrilobular emphysema. - 04/12 Testicular ultrasound: normal, no mass - 04/13 PET symmetric FDG uptake in bilateral thigh and iliopsoas. Other medical problems addressed during this hospitalization: # Neuropathic pain # Muscle spasms Patient's home regimen was Gabapentin 300mg TID, Baclofen 10mg TID. Patient was managed inpatient withTylenol 1000mg Q6H PRN (with LFT) + gabapentin??200mg nightly + Baclofen??20 mg TID + lidocaine patches + Valium 1/2/2 mg. He was discharged on gabapentin 200 mg nightly, baclofen 20 mg TID, and Valium 1/2/2 mg. He will likely need ongoing gradual uptitration of his anti-spasmodic agents to improve his muscle tone as he acclimates to their sedating effects. # Hypertension Home regimen was Amlodipine 10 mg Daily. This was continued in the hospital and on discharge. Active Issues Requiring Follow-up: - Lateral tractopathy (stiff-person syndrome spectrum): The patient will be following in the [facility] with Dr. Swain's team - Muscle spasms/stiffness: The patient is currently on a complex regimen for management of spasticity as below: 1. Baclofen 20 mg TID 2. Valium 1 mg 09:00, 2 mg 12:00, 2 mg 21:00 3. Gabapentin 200 mg qHS The patient's Valium should be slowly titrated at 1 mg per dose per 2-3 days for symptom management. If the patient develops flaccid weakness or excess sedation, dosing should be increased more gradually. 04/25/22: Neurology Progress Note Assessment/Plan Rebecca Riojas is a 51 y.o. male with a history of hypertension??who presents with??several months of progressive bilateral lower extremity weakness, numbness, and spasms. His neurologic significant for spastic paresis of his bilateral lower extremities with a flexor pattern of weakness. MRI demonstrates bilateral lateral column tractopathy. PET scan shows symmetric moderate FDG uptake in the bilateral thighs, iliopsoas, paraspinal, and scalene muscles. 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 He has completed a five gram course of intravenous methylprednisolone and two gram/kgcourse of IVIG. # Longitudinally Extensive Lateral Tractopathies Workup: - Labs prior to admission: ESR 12, CRP <3, CK 315, Aldolase 5.3, a1c 5.6, B12 955, Zn 0.75, Vit E 9.2, SPEP WNL, HIV/RPR NR, IgG 1399. IgA 325, IgM 86, anti- histone 2.3H, dsDNA 10H, KATH/SSA/SSB/EMILY/chromatin WNL - 02/16 MRI T Spine WO L C5-C6 disc herniation touches the ventral aspect of the cord and narrows L neural foramen - Normal serum labs: Lipase, A1c (5.6), HIV, RPR, Lyme, treponemal IgG/IgM, UA,, ab-HTLV I/II, TSPOT, B12, Vit E, MMA, Cu, Zn, NMO, MOG, KATH, ANCA, anti-mcmillan, SS-A, SS-B, Scl 70, Kirsten-1, homocysteine,antiphospholipid screen, aldolase, immunotyping, UPEP/IF, PNP (Mcconnell), biotinadase activity, Ma/Ta Ab - Abnormal serum labs: EMILY (+), SCIENTIFIC RECRUITER (5.2), anto-dsDNA (6.0), CK (478), immuno competence panel ([id number], CD4 abs 2118) - Pending serum labs: PNP (Pestronk), anti-glycine Ab, anti-GAD65 Ab, neurofilament light chain -??Lumbar??Puncture (04/11): N4-0, R691-44, P29, G71. Negative OCB (3 serum/CSF, 0 unique), IgG index (0.54), WNV,??AFB,??Cytology (Flow ordered but never run due to lab error). - MRI T & L Spine WWO (04/11): progression of lateral cord signal abnormality from C6 - T11 sparing L T6 - T8, severe b/l neuroforaminal stenosis at L4-L5 -??CT Chest/Abdomen/Pelvis (04/11): 1. No CT evidence of malignancy in tchest, abdomen, or pelvis. 2. ??Scattered sub-5 mm pulmonary nodules, nonspecific. 3. Mild centrilobular emphysema. - Testicular ultrasound (04/12): normal, no mass - PET/CT (04/13): symmetric increased FDG uptake in bilateral thigh and iliopsoas as well as paraspinal and scalene - EMG/NCS (04/16): No e/o myopathy, possible mild LE neuropathy versus low limb temp, mild L ulnar neuropathy, reduced activation poss c/w UMN lesion Plan: - s/p IVMP 5 grams (04/17 - 04/22) - s/p IVIG 2 g/kg (04/22 - 04/23) - Outpatient follow-up with Dr. Swain in Neuromuscular clinic. # Neuropathic pain # Muscle spasms Home regimen: Gabapentin 300mg TID, Baclofen 10 mg TID. - Valium 1/2/2 mg - Baclofen 20 mg TID - Gabapentin 200 mg nightly - Lidocaine patch BID - APAP 1000 mg q6H PRN # Hypertension Home regimen: Amlodipine 10 mg Daily - Amlodipine 10 mg daily Prior to initial admission, patient was independent with all functional mobility, was working FT, driving; as his condition progressed, he moved in with his mother and eventually required a wheelchair for mobility. Currently, patient requires MIN A for transfers, toilet transfers, grooming, LE dressing and ambulation 50ft WW Due to severe functional decline and medical concerns patient has been accepted and approved by Insurance provider to admit to Acute Inpatient Rehabilitation Date of Onset: Date of Onset: 02/16/22 Date Admitted to Acute: Date admitted to acute: 04/10/22 Precautions/Restrictions: Spinal, Falls Weight Bearing Precautions: WBAT [place] Suicide Severity Rating Scale: Allergies: Allergies Allergen Reactions ??? Other Other (See comments) ??? Penicillins Rash ??? Sulfa (Sulfonamide Antibiotics) Hives Code Status: Full Code Vitals: There were no vitals filed for this visit. Current Systems Summary: Height: 170.2 cm (5' 7 ) Weight: 71.2 kg (157 lb) Diet: Bedtime snack: snacks starting at 04/18 2100 Oral Nutrition Supplements Select Supplement: Ensure High Protein - Van starting at 04/17 1343 Adult Diet Regular: General starting at 04/13 1412 Bladder: Continent Bowel: Continent Date of last BM: 04/20/22 Integumentary: kenneth score 19; Cardiopulmonary: Room air Dialysis: N/A Pain: Patient has pain that is controlled on current regimen IVs: Peripheral IV (Peripheral IV 04/25/22 20 G Anterior;Left;Proximal Forearm 1 day) Current meds: Current Facility-Administered Medications on File Prior to Visit Medication Dose Route Frequency Provider Last Rate Last Admin ??? acetaminophen (TYLENOL) tablet 1,000 mg 1,000 mg oral Q6H PRN Lizzy Eric MD 1,000 mg at 04/26/22 0509 ??? amLODIPine (NORVASC) tablet 10 mg 10 mg oral Daily Rachael Britton MD 10 mg at 04/26/22 0858 ??? baclofen (LIORESAL) tablet 20 mg 20 mg oral TID with meals Bishop Phan MD 20 mg at 04/26/22 0859 ??? bisacodyL (DULCOLAX) suppository 10 mg 10 mg rectal Daily PRN Viridiana Kirk MD ??? bisacodyl EC (DULCOLAX EC) tablet 10 mg 10 mg oral Daily PRN Viridiana Kirk MD 10 mg at 04/22/22 2333 ??? calcium carbonate (TUMS) chewable tablet 1,000 mg 400 mg of elemental calcium oral TID PRN George Hawthorne, TIFFANIE 1,000 mg at 04/25/22 1659 ??? diazePAM (VALIUM) tablet 1 mg 1 mg oral Daily Bishop Phan MD 1 mg at 04/26/22 0858 ??? diazePAM (VALIUM) tablet 2 mg 2 mg oral BID Damion Henriquez MD PhD 2 mg at 04/25/226 ??? enoxaparin (LOVENOX) syringe 40 mg 40 mg subcutaneous Daily-2100 Viridiana Kirk MD40 mg at 04/25/22 2217 ??? gabapentin (NEURONTIN) capsule 200 mg 200 mg oral Nightly Lizzy Eric MD 200 mg at 04/25/222215 ??? lidocaine (LIDODERM) 5 % patch 2 patch 2 patch transdermal Daily Lizzy Eric MD 2 patch at 04/26/22 0858 ??? ondansetron ODT (ZOFRAN-ODT) disintegrating tablet 4 mg 4 mg oral Q6H PRN Viridiana Kirk MD Or ??? ondansetron (ZOFRAN) injection 4 mg 4 mg intravenous Q6H PRN Viridiana Kirk MD ??? polyethylene glycol (MIRALAX) packet 17 g 17 g oral Daily PRN Ino Wilkins MD 17 g at 04/13/22 1718 ??? polyethylene glycol (MIRALAX) packet 17 g 17 g oral BID Ino Wilkins MD 17 g at 04/25/22 0843 ??? ramelteon (ROZEREM) tablet 8 mg 8 mg oral Nightly Bishop Phan MD 8 mg at 04/25/22 8077 Current Outpatient Medications on File Prior to Visit Medication Sig Dispense Refill ??? amLODIPine (NORVASC) 10 mg tablet Take 10 mg by mouth daily ??? aspirin 81 mg chewable tablet Take 1 tablet (81 mg total) by mouth daily 90 tablet 0 ??? atorvastatin (LIPITOR) 20 mg tablet Take 1 tablet (20 mg total) by mouth nightly 90 tablet 0 ??? baclofen (LIORESAL) 20 mg tablet Take 1 tablet (20 mg total) by mouth 3 (three) times a day with meals 90 tablet 0 ??? baclofen (LIORESAL) 5 mg tablet Take 1 tablet (5 mg total) by mouth nightly 30 tablet 0 ??? diazePAM (VALIUM) 2 mg tablet Take 0.5 tablets (1 mg total) by mouth every morning AND 1 tablet(2 mg total) daily after lunch AND 1 tablet (2 mg total) nightly. ??? gabapentin (NEURONTIN) 100 mg capsule Take 2 capsules (200 mg total) by mouth nightly 60 capsule 11 ??? gabapentin (NEURONTIN) 300 mg capsule Take 1 capsule (300 mg total) by mouth 3 (three) times a day 270 capsule 0 ??? loratadine (CLARITIN) 10 mg tablet Take 10 mg by mouth daily ??? traZODone (DESYREL) 50 mg tablet Take 1 tablet (50 mg total) by mouth nightly as needed for sleep 30 tablet 0 Substance abuse history: Rebecca Riojas reports that he has never smoked. He has never used smokeless tobacco. He reports current drug use. Frequency: 2.00 times per week. Drug: Marijuana. Diagnostic Tests: Recent Results (from the past 72 hour(s)) CBC without differential Collection Time: 04/23/22 11:14 PM Result Value Ref Range WBC 12.0 (H) 3.8 - 9.9 K/cumm Hgb 13.9 13.0 - 17.5 g/dL Hct 42.5 38.9 - 50.3 % Plt 333 150 - 400 K/cumm MPV 10.8 9.1 - 12.3 fL RBC 5.11 4.30 - 5.80 M/cumm MCV 83.2 81.3 - 96.4 fL MCH 27.2 27.1 - 33.3 pg MCHC 32.7 32.3 - 35.7 g/dL RDW CV 13.2 11.1 - 14.9 % RDW SD 39.8 35.7 - 48.1 fL NRBC abs 0.08 (H) 0.00 - 0.01 K/cumm Basic metabolic panel Collection Time: 04/23/22 11:14 PM Result Value Ref Range Sodium 136 135 - 145 mmol/L Potassium, pl 3.8 3.3 - 4.9 mmol/L Chloride 101 97 - 110 mmol/L CO2 26 22 - 32 mmol/L Anion gap 9 2 - 15 mmol/L BUN 24 8 - 25 mg/dL Creatinine 0.81 0.80 - 1.30 mg/dL Glucose 92 70 - 199 mg/dL Calcium 8.2 (L) 8.5 - 10.3 mg/dL eGFR Collection Time: 04/23/22 11:14 PM Result Value Ref Range eGFR >90 90 - 130 mL/min/1.73 m2 POCT glucose Collection Time: 04/25/22 8:01 AM Result Value Ref Range Glucose, POC 105 70 - 199 mg/dL CBC without differential Collection Time: 04/26/22 5:15 AM Result Value Ref Range WBC 7.9 3.8 - 9.9 K/cumm Hgb 14.1 13.0 - 17.5 g/dL Hct 43.0 38.9 - 50.3 % Plt 266 150 - 400 K/cumm MPV 11.5 9.1 - 12.3 fL RBC 5.20 4.30 - 5.80 M/cumm MCV 82.7 81.3 - 96.4 fL MCH 27.1 27.1 - 33.3 pg MCHC 32.8 32.3 - 35.7 g/dL RDW CV 13.4 11.1 - 14.9 % RDW SD 40.2 35.7 - 48.1 fL NRBC abs 0.00 0.00 - 0.01 K/cumm Basic metabolic panel Collection Time: 04/26/22 5:15 AM Result Value Ref Range Sodium 137 135 - 145 mmol/L Potassium, pl 4.0 3.3 - 4.9 mmol/L Chloride 99 97 - 110 mmol/L CO2 30 22 - 32 mmol/L Anion gap 8 2 - 15 mmol/L BUN 17 8 - 25 mg/dL Creatinine 0.83 0.80 - 1.30 mg/dL Glucose 95 70 - 199 mg/dL Calcium 8.7 8.5 - 10.3 mg/dL eGFR Collection Time: 04/26/22 5:15 AM Result Value Ref Range eGFR >90 90 - 130 mL/min/1.73 m2 Prior Functional Status: Mobility status/Ambulation aid/assistive devices: Transfers: Independent Walking: Independent Type of wheelchair used: Manual Falls: Has the patient had 2 or more falls in the past year or any fall with injury in the past year?: No Activities of daily living (ADL) status/ Assistive devices used for ADLs: Dressing: Independent Bathing: Independent Toileting: Independent Bladder: Continent Bowel: Continent Domestic Chores: Independent Driving: No Functional limitations: Hearing: Normal Sensory Vision: Normal Cognition: Intact Communication: Normal Nutrition: Normal Occupation: no longer working due to current medical status Home Setting: One story home Prehospital Lives With: Mother Exterior Home Access: No steps Current functional status: ADL: OT Functional Mobility: 04/23/22: Toilet Transfers - Min A (04/26/2022 11:12 AM) OT Self Care: grooming and LE dressing - MIN A (04/26/2022 11:12 AM) OT Cognition: wfl (04/26/2022 11:12 AM) OT Communication: wfl (04/26/2022 11:12 AM) Mobility/Transfers: PT Functional Mobility: 04/25/22: Ambulation 50ft Min A WW; Transfers Min A (04/26/2022 11:12 AM) Cognition/Communication/Swallowing: BRIM SETTER Cognition: n/a (04/26/2022 11:12 AM) BRIM SETTER Communication: n/a (04/26/2022 11:12 AM) BRIM SETTER Swallowing: n/a (04/26/2022 11:12 AM) Conditions requiring acute rehab and risk for complications: Gait dysfunction - risk for falls and further injury, fracture Decreased mobility - Risk for Fall, skin breakdown, further injury, decompensation, muscle flaccidity Balance Issues- Risk for Fall, further injury Treatments needed to address conditions requiring acute rehab: Daily Face to Face oversight by a provider, Intense PT/OT/SP, Access to Building Energy Retrofit Technician physicians, Frequent Neuro assessment, Bowel Program Alternative Level of Care considered and not appropriate due to: Consult physician oversight, DailyMD oversight, Diagnostics, Neurochecks, Medication adjustment/oversight Patient/Caregiver Goals: Patient and Family Goals: to return home with family support Cosigned by Jazmin Romero MD at 04/26/2022 12:35 PM CDT Associated attestation - Jazmin Kim MD - 04/26/2022 12:35 PM CDT Rehab Referral Decision: Approved I have reviewed this patient Pre-admission Screening Information.The patient is medically stable toparticipate in an inpatient rehabilitation program. In my rehabilitation experience and professional judgement, this patient meets medical necessity criteria and requires an inpatient rehabilitation stay to manage current nursing and medical issues. The patient requires supervision by a rehabilitation physician at least three times a week. The patient requires the Interdisciplinary team approach of an inpatient rehabilitation program. This patient can reasonably expect to participate and benefit from the intensive Inpatient rehabilitation program offered at [facility] . documented in this encounter Plan of Treatment Upcoming Encounters Date Type Department Care Team (Late st Contact Info) Description 04/16/2025 1:45 PM CDT Hospital Encounter [facility] Operating Room [address] [place] [id number] Maik Roland MD [address] [place] [address] 04/16/2025 1:45 PM CDT Anesthesia Event [facility] Operating [address] [place] [id number] Kathie Noble NP [address] [facility] [id number] [place] [address] 04/16/2025 1:45 PM CDT - 04/16/2025 4:55 PM CDT Surgery [facility] Operating Room [address] [place] [id number] Maik Roland MD [address] [place] [address] EXCISION SUBMANDIBULAR GLAND Scheduled Procedures Name Priority Associated Diagnoses Date/Ti me EXCISION SUBMANDIBULAR GLAND Submandibular gland mass 04/16/2025 1:45 PM CDT documented as of this encounter Visit Diagnoses Not on filedocumented in this encounter Care Teams Customer Service Operator Relationship Specialty [place] [id number] [facility] [place] [address] PCP - General Internal Medicine 03/19/22 01/05/24 Macho Loyd MD [address] [facility] [address] AV[address] Valles [facility] [address] [place] [address] PCP - General Family Medicine 01/06/24 10/26/24 [place] [id number] [facility] [place] [address] PCP - General Internal Medicine 10/27/24 Dawna Heredia, PT Physical Therapist Physical Therapy 08/28/22 Dony Mendoza, OT Occupational Therapist Occupational Therapy 04/02/23 Sundeep Coe Jr., MD [address] [place] [address] Consulting Physician Neurology 01/06/24 Brooklyn Elizondo DO [address] [facility] [address] AVA Truong [facility] [address] [place] [address] Consulting Physician Otolaryngology 05/11/24 [place] [id number] [facility] [address], [place] [address] Surgeon Colon and Rectal Surgery 12/14/24 documented as of this encounter
--- OUTSIDE RECORDS SUMMARY | 2025-03-31 13:56 | XMS_ITS | Referral Summary ---
Author Organization [facility] Address [address] [place] [address] Care Team Providers Care Assembler Metal Building Name Role Phone Dawna Heredia PT Unavailable Unavailabl Dony Sal OT Unavailable Unavailable Saravanan Cowan MD, Sundeep Pleitez Unavailable + Brooklyn Elizondo DO Unavailable [phone] Maik Leija MD Primary Care Provider + Nadine Marino MD Unavailable [phone] Encounters Date Type Department Care Team Description 03/11/2025 2:40 PM CDT Lab [address] [address] 03/09/2025 12:05 PM CDT - 03/09/2025 1:05 PM CDT Surgery [facility] Operating Room [address] [place] [address] Mitchell Marley MD TRANSRECTAL ULTRASOUND FUSION GUIDED PROSTATE BIOPSY 03/09/2025 12:07 PM CDT Anesthesia Event [facility] Operating Room [address] [place] [address] Fracisco Antonio MD 03/09/2025 10:02 AM CDT - 03/09/2025 2:04 PM CDT Hospital Encounter [facility] Operating Room [address] [place] [address] Mitchell Marley MD Elevated PSA Discharge Disposition: Discharge to home or self care 03/04/2025 Orders Only [facility] Department of Otolaryngology Head-Neck Division [address] [facility] Floor 5 [place] [address] Maik Roland MD 03/03/2025 Telephone [facility] ([facility]) [facility] [address] [facility] 11th [place] [address] [place] [address] Jess Lambert MS 02/10/2025 Telephone [facility] [address] [facility] [address] [place] [address] Cayden Ahmadi MD 02/05/2025 12:47 PM PROJECT MANAGER ENTERTAINMENT AND MEDIA - 02/05/2025 11:59 PM PROJECT MANAGER ENTERTAINMENT AND MEDIA Hospital Encounter [facility] [address] [place] [address] Myelopathy (HCC) Discharge Disposition: Discharge to home or self care 02/05/2025 12:47 PM PROJECT MANAGER ENTERTAINMENT AND MEDIA - 02/05/2025 11:59 PM PROJECT MANAGER ENTERTAINMENT AND MEDIA Hospital Encounter [facility] 1 [place] [address] Myelopathy (HCC) Discharge Disposition: Discharge to home or self care 01/28/2025 1:30 PM PROJECT MANAGER ENTERTAINMENT AND MEDIA Office Visit [facility] [address] [facility] [address] [place] [address] Cayden Ahmadi MD Myelopathy (HCC) (Primary Dx); Chronic bilateral low back pain without sciatica; Bilateral numbness and tingling of arms and legs 01/18/2025 4:00 PM PROJECT MANAGER ENTERTAINMENT AND MEDIA Office Visit [facility]) [facility] [address] [facility] Office Building [address] [place] [address] Maik Roland MD Mass of left submandibular region (Primary Dx) 01/07/2025 2:15 PM PROJECT MANAGER ENTERTAINMENT AND MEDIA Office Visit [facility] Surgery [address] [facility] [address] [place] [address] Nadine Marino MD Postop check (Primary Dx) 01/04/2025 11:21 AM PROJECT MANAGER ENTERTAINMENT AND MEDIA - 01/04/2025 11:59 PM PROJECT MANAGER ENTERTAINMENT AND MEDIA Hospital Encounter [facility] [address] [place], [place] [id number] Cancer of submandibular gland (HCC) Discharge Disposition: Discharge to home or self care from Last 3 Months Allergies Active Allergy Reactions Criticality Noted Date [...] 2 (two) times a day 6 tablet Active predniSONE (DELTASONE) 20 mg tablet Take [...] needle aspiration cytology: - Suspicious for malignancy (Xander category V). - See microscopic description. US [...] following reasons: The patient has a prior AK or stroke diagnosis Lab Results Component Value [...] following reasons: The patient has a prior AK or stroke diagnosis Lab Results Component Value Date LDLCALC 113 08/16/2023 Lab Results Component Value Date GLUCOSE 99 06/25/2023 CALCIUM 8.7 06/25/2023 SODIUM 142 06/25/2023 POTASSIUM 3.7 06/25/2023 CO2 26 06/25/2023 CHLORIDE 107 06/25/2023 BUNSER 9 06/25/2023 CREATININE 0.85 06/25/2023 Assessment & Plan (01/06/2024 8:57 AM PROJECT MANAGER ENTERTAINMENT AND MEDIA): Blood Pressure Management BP Readings from Last [...] following reasons: The patient has a prior AK or stroke diagnosis Lab Results Component Value [...] dose of IVIG and suggested he contact [facility] to see if he could still receive these - currently prescribed Baclofen 10 mg TID per Neurology - established with neurology at [facility] - Dr. Ahmadi - he wants to get back on IVIG treatments but reportedly had palmar skin peeling in prrior IVIG so being held - states he was even evaluated at [place] for this - has had significant recovery [...] dose of IVIG and suggested he contact [facility] to see if he could still receive these - currently prescribed Baclofen 20mg TID, no longer on Valium 5mg TID - he wants to establish with neurology at [facility], referral placed and has an appointment for 07/2024 - he wants to get back on IVIG treatments - states he was even evaluated at [place] for this - has had significant recovery overall - he was on Meloxicam and Duloxetine in past for pain in back, also tried Pregabalin 50 mg TID in the past --> restarted Cymbalta on prior visit - continue current management Assessment & Plan (01/10/2024 5:56 AM PROJECT MANAGER ENTERTAINMENT AND MEDIA): - following with Neurology - Dr. Coe [...] dose of IVIG and suggested he contact [facility] to see if he could still receive these - currently prescribed Baclofen 20mg TID, Valium 5mg TID but not on valium 5 mg TID at this time - he wants to establish with neurology at [facility] - he wants to get back on IVIG treatments - states he was even evaluated at [place] for this - has had significant recovery [...] 08/16/2023 Assessment & Plan (01/06/2024 9:12 AM PROJECT MANAGER ENTERTAINMENT AND MEDIA): - chronic, better controlled - noted to [...] history. Assessment & Plan (01/10/2024 5:55 AM PROJECT MANAGER ENTERTAINMENT AND MEDIA): - new, noted on left submandibular area [...] management Assessment & Plan (01/06/2024 9:10 AM PROJECT MANAGER ENTERTAINMENT AND MEDIA): - chronic condition, stable status - currently [...] capsule. Assessment & Plan (01/06/2024 1:05 PM PROJECT MANAGER ENTERTAINMENT AND MEDIA): - hx of CVA, around 2020 - [...] (09/16/2021): Added automatically from request for surgery [id number] Hemorrhoids 08/23/2021 01/06/2024 Overview (08/23/2021): Added automatically from request for surgery [id number] Abscess of groin 03/19/2012 01/10/2024 Immunizations Immunization Administration Dates Next Due Influenza, Quadrivalent, Rec ombinant, Egg Free, Preservative Free, Intramuscular 12/11/2021 Influenza, Quadrivalent, Split, Intramuscular Influenza, Quadrivalent, Spl it, Preservative Free, Intramuscular 01/06/2024 Influenza, Trivalent, Preservative Free, Intramu scular 01/02/2011 Influenza, Unspecified 09/01/2021 Pneumococcal Polysaccharide PPV23 01/02/2011 Social History Tobacco Use Types Packs/Day Years [...] often do you attend chur ch or anabaptist services? Never 04/18/2022 Do you belong to any clubs o r organizations such as gnosticist groups, unions, fraternal or athletic groups, or [...] staff should administer the PHQ-9) 0 08/05/2024 [facility] Questionnaire Answer Date Recorded [...] place to sleep or slept in a jail (including now)? No 02/23/2022 Personal Safety Answer Date Recorded Have you ever been in or are you currently in a harmful physical or emotional relationship or is someone making you feel afraid or unsafe? Denies 03/09/2025 Sex and Gender Information Value Date Recorded Sex Assigned at Not on file Legal Sex Male 1:55 AM PROJECT MANAGER ENTERTAINMENT AND MEDIA Gender Identity Not on file Sexual Orientation [...] Description 04/16/2025 1:45 PM CDT Hospital Encounter [facility] Operating Room 1 [place] [address] Maik Roland MD [address] [place] [address] 04/16/2025 1:45 PM CDT Anesthesia Event [facility] Operating Room [address] [place] [phone] Kathie Noble, TIFFANIE [address] [facility] [phone] [place], [place] [phone] 04/16/2025 1:45 PM CDT - 04/16/2025 4:55 PM CDT Surgery [facility] Operating Room [address] [place] [address] Maik Roland MD [address] [place] [address] EXCISION SUBMANDIBULAR GLAND Scheduled Procedures Name Priority Associated Diagnoses Date/Ti me EXCISION SUBMANDIBULAR GLAND Submandibular gland mass 04/16/2025 1:45 PM CDT Medical Devices Implanted Type Area Residential Door Installer Device Identifier Shelf Expiration Date Model / Serial / Lot [employer] Progrip [id number] Self Fixate Flat Sheet Mesh Surgical Gita Pet Latex Free [id number] - [id number] Implanted:Qty : 1 on 12/14/2024 by Nadine Marino MD at [facility] Left: Inguinal [employer] [id number] 01/01/2027 [id number] / / [id number] [employer] Progrip [id number] Self Fixate Flat Sheet Mesh Surgical Gita Pet Latex Free [id number] - [id number] Implanted:Qty : 1 on 12/14/2024 by Nadine Marino MD at [facility] Right: Inguinal [employer] [id number] 01/01/2027 [id number] / / [id number] Procedures Procedure Name Priority Date/Time Associated Diagnosis [...] CDT Elevated PSA Special Needs URONAV FORTEC CONF#[id number] MRI THORACIC SPINE W WO CONTRAST Schedule BEHZAD, Read Routine (Patient lives out of area) 02/05/2025 2:25 PM PROJECT MANAGER ENTERTAINMENT AND MEDIA Myelopathy (HCC) MRI LUMBAR SPINE W WO CONTRAST Schedule BEHZAD, Read Routine (Patient lives out of area) 02/05/2025 2:10 PM PROJECT MANAGER ENTERTAINMENT AND MEDIA Myelopathy (HCC) CT SOFT TISSUE NECK W CONTRAST Schedule BEHZAD, Read Routine (Patient lives out of area) 01/04/2025 12:06 PM PROJECT MANAGER ENTERTAINMENT AND MEDIA Cancer of submandibular gland (HCC) PSA SCREEN Routine 10/26/2024 9:17 AM PROJECT MANAGER ENTERTAINMENT AND MEDIA COLONOSCOPY 11/14/2021 1:05 PM PROJECT MANAGER ENTERTAINMENT AND MEDIA from Last 3 Months or Most Recently [...] MD LAB BLOOD ORDERABLES Fin al Result [facility] [address] [address] Department [place] [address] * Differential, auto (03/11/2025 2:39 PM CDT) Neutrophil abs 3.66 1.50 - 6.50 K/cumm Imm gran abs 0.02 0.00 - 0.10 K/cumm [facility] Lymphocyte abs 2.88 0.80 - 3.30 K/cumm [facility] Monocyte abs 0.59 0.20 - 0.80 K/cumm [facility] Eosinophil abs 0.12 0.00 - 0.50 K/cumm [facility] Basophil abs 0.07 0.00 - 0.10 K/cumm [facility] Neutrophil pct 49.9 % [facility] Comment: Interpretive Data Percent cell count reference ranges are not reported, since discordance with absolute values may lead to misinterpretation of CBC data. Current Interpretive Data was last revised on 2018. Imm gran pct 0.3 % [facility] Comment: Interpretive Data Percent cell count reference ranges are not reported, since discordance with absolute values may lead to misinterpretation of CBC data. Current Interpretive Data was last revised on 2018. Lymphocyte pct 39.2 % [facility] Comment: Interpretive Data Percent cell count reference [...] MD LAB BLOOD ORDERABLES Fin al Result [facility] [address] Department [place] [address] * (ABNORMAL) Urinalysis reflex to microscopic and culture Urine (03/11/2025 2:39 PM CDT) Color, ur Straw Yellow Clarity, ur Clear Clear [facility] Specific gravity, ur 1.008 1.003 - 1.030 [facility] CH pH, urine 6.0 [facility] Comment: Interpretive Data U rine pH is affected by diet, medications, systemic acid-base disturbances, and renal tubular function. pH may affect urinary stone formation. For example, urine pH below 6.0 may help reduce the tendency for calcium phosphate stones and pH greater than 6.0 may reduce the tendency for uric acid stone formation. Source: [facility] [employer] Current Interpretive Data was last revised on 2017 Protein, ur ql Negative Negative [facility] Glucose, ur ql Negative Negative [facility] Ketones, ur Negative Negative [facility] Bilirubin, ur Negative Negative [facility] Blood, ur Trace(A) Negative [facility] Urobilinogen, ur <2.0 <2.0 mg/dL [facility] Nitrite, ur Negative Negative [facility] Leukocyte esterase, ur Negative Negative [facility] UA reflex comment Reflex to microscopic UA will be performed. [facility] Urine 03/11/2025 2:39 PM CDT 03/11/2025 2:39 PM CDT Maik Leija MD LAB MICROBIOLOGY - GENER AL ORDERABLES Final Result Performing Organization Address [facility] Co de Phone Number [facility] [address] [email or web address] [address] * (ABNORMAL) CBC with auto differential (03/11/2025 2:39 PM CDT) WBC 7.34 3.80 - 9.90 K/cumm Hgb 15.6 13.0 - 17.5 g/dL [facility] Hct 49.2 38.9 - 50.3 % [facility] Plt 364 150 - 400 K/cumm [facility] MPV 10.6 9.1 - 12.3 fL [facility] RBC 5.68 4.30 - 5.80 M/cumm [facility] MCV 86.6 81.3 - 96.4 fL [facility] MCH 27.5 27.1 - 33.3 pg [facility] MCHC 31.7(L) 32.3 - 35.7 g/dL [facility] RDW CV 13.2 11.1 - 14.9 % [facility] RDW SD 41.4 35.7 - 48.1 fL [facility] NRBC abs 0.00 0.00 - 0.01 K/cumm [facility] Blood 03/11/2025 2:39 PM CDT 03/11/2025 2:39 PM CDT Maik Leija MD LAB BLOOD ORDERABLES Fin al Result Performing Organization Address [facility] Co de Phone Number [facility] [address] [address] [email or web address] [address] * Urinalysis, microscopic only (03/11/2025 2:39 PM CDT) WBC, ur 0-5 0 - 5 /HPF RBC, ur 0-2 0 - 2 /HPF [facility] Culture Reflex Comment Reflex conditions for urine culture (WBC >10) not met. [facility] Urine 03/11/2025 2:39 PM CDT 03/11/2025 6:55 PM CDT us Maik Leija MD LAB URINE ORDERABLES Fin al Result [facility] [address] Department [place] [address] * Comprehensive metabolic panel (03/11/2025 2:39 PM CDT) Sodium 139 135 - 145 mmol/L Potassium, pl 3.9 3.3 - 4.9 mmol/L [facility] Chloride 104 97 - 110 mmol/L [facility] CO2 27 22 - 32 mmol/L [facility] Anion gap 8 2 - 15 mmol/L [facility] BUN 9 6 - 25 mg/dL [facility] Creatinine 0.82 0.80 - 1.30 mg/dL [facility] Glucose 75 70 - 199 mg/dL [facility] Comment: Interpretive Data Fasting glucose >/= 126 [...] Calcium 9.3 8.5 - 10.3 mg/dL [facility] Bilirubin, total 0.5 0.1 - 1.2 mg/dL [facility] Protein, pl 7.2 6.5 - 8.5 g/dL [facility] Albumin 4.2 3.5 - 5.0 g/dL [facility] Alk phos 86 40 - 130 Units/L [facility] ALT 23 7 - 55 Units/L [facility] AST 29 10 - 50 Units/L [facility] Blood 03/11/2025 2:39 PM CDT 03/11/2025 2:39 PM CDT us Maik Leija MD LAB BLOOD ORDERABLES [facility] al Result [facility] [address] [address] Department [place] [address] * Surgical pathology (03/09/2025 1:20 PM CDT) [...] Biopsy) 03/09/2025 11:59 AM CDT Narrative PATHOLOGY [facility] ([facility]) - 03/12/2025 1:21 PM CDT EPIC results best viewed via link to PDF [facility] Department of Pathology [address] [place] [address] Note to Patients: This report may contain [...] Final Report Patient Name: CLIVE RIOJAS Address: [address] [place] [address] Gender: M : 1970 (Age: 54) Service: Surgery Location: [facility] Hospital #: [id number] Patient Type: [facility] Taken: 03/09/2025 Received: 03/10/2025 Accessioned: 03/10/2025 Reported: [...] medial base, needle biopsy- Prostatic acinar adenocarcinoma, Polacca grade 3+4=7, grade group 2 4mm focus [...] of interest, needle biopsy- Prostatic acinar adenocarcinoma, [place] grade 4+3=7, grade group 3 2 mm [...] ultrasound fusion guided prostate biopsy - [facility]. Gross Description: The specimen is submitted in [...] is 1 core of womack tissue measuring 1.8 cm. Entirely in D. [...] determined by the Surgical Pathology Department at [facility] as part of an ongoing quality assurance inspector program and in compliance with federally mandated [...] characteristics determined by the Surgical Pathology Department [facility]. It has not been cleared or approved by the U. S. Food and Drug Administration. Note for decalcified specimens: This assay has not been validated on decalcified tissues. Results should be interpreted with caution given the possibility of false negativity on decalcified specimens [facility] David Marley MD LAB PATHOLOGY ORDERABLES Final Result PATHOLOGY [facility] ([facility]) [address] [place] [address] * MRI Thoracic Spine W WO Contrast (02/05/2025 2:25 PM PROJECT MANAGER ENTERTAINMENT AND MEDIA) Anatomical Region Laterality Modality Spine N/A Magnetic Resonan ce 02/05/2025 2:25 PM PROJECT MANAGER ENTERTAINMENT AND MEDIA Narrative 02/05/2025 2:38 PM PROJECT MANAGER ENTERTAINMENT AND MEDIA EXAM DESCRIPTION: MRI THORACIC SPINE W WO [...] Jose Hicks D.O. AP: AP Report ID: [id number] Reading Location: [place] [address] Procedure Note Jose Hicks, DO - 02/05/2025 [...] COMPARISON: Thoracic spine MRI 05/02/2023 and 04/10/2022. [id number]-ohplQRI-WK dated 04/13/2022. Chest CT dated 04/11/2022. FINDINGS: [...] Jose Hicks D.O. AP: AP Report ID: [id number] Reading Location: [place] [address] Cayden Amhadi MD IMG MRI PROCEDURES Rosa l Result * MRI Lumbar Spine W WO Contrast (02/05/2025 2:10 PM PROJECT MANAGER ENTERTAINMENT AND MEDIA) Anatomical Region Laterality Modality Spine N/A Magnetic Resonan ce 02/05/2025 2:24 PM PROJECT MANAGER ENTERTAINMENT AND MEDIA Narrative 02/05/2025 2:52 PM PROJECT MANAGER ENTERTAINMENT AND MEDIA EXAM DESCRIPTION: MRI LUMBAR SPINE W WO [...] Whole-body PET-CT dated 04/13/2022. FINDINGS: SEGMENTATION: 5 tgr-zxb-sfzqzxq lumbar type vertebral bodies. ALIGNMENT: The anterior-posterior [...] arthropathy. Flattening of the ventral thecal sac. Dpsz-pi-nonlmdqq neural foraminal narrowing. L4-L5: Disc bulge with marginal spur formation. Superimposed central disc protrusion. Thickened ligamentum flavum with facet arthropathy. Qwtw-du-iaepmxar spinal canal stenosis. Lateral recess effacement on both sides. Severe bilateral neural foraminal narrowing. L5-S1: Disc bulge with marginal spur formation. Superimposed central/left subarticular disc protrusion with annular fissure. Bilateral facet arthropathy. There is epidural lipomatosis. Mild spinal canal stenosis. Pkdy-wwpnkwz-byjl-right lateral recess effacement with disc protrusion contacting the descending S1 nerve roots. Moderate left and mild right neural foraminal narrowing. IMPRESSION: 1. Ltwu-yr-mlgmaczv lumbar disc degeneration with thickened ligamentum flavum [...] Jose Hicks D.O. AP: AP Report ID: [id number] Reading Location: [id number] Procedure Note Jose Hicks, DO - 02/05/2025 EXAM DESCRIPTION: MRI LUMBAR [...] Whole-body PET-CT dated 04/13/2022. FINDINGS: SEGMENTATION: 5 qcj-jbb-vgdaxyp lumbar type vertebral bodies. ALIGNMENT: The anterior-posterior [...] arthropathy. Flattening of the ventral thecal sac. Kirh-zn-atygjmqqzbemox foraminal narrowing. L4-L5: Disc bulge with marginal spur formation. Superimposed central disc protrusion. Thickened ligamentum flavum with facet arthropathy. Bymu-pq-vabmmypl spinal canal stenosis. Lateral recess effacement on both sides. Severe bilateral neural foraminal narrowing. L5-S1: Disc bulge with marginal spur formation. Superimposed central/left subarticular disc protrusion with annular fissure. Bilateral facet arthropathy. There is epidural lipomatosis. Mild spinal canal stenosis. Qcix-gdftfnq-xhau-right lateral recess effacement with disc protrusion contacting the descending S1 nerve roots. Moderate left and mild rightneural foraminal narrowing. IMPRESSION: 1. Edlb-ff-fkdxedpr lumbar disc degeneration with thickened ligamentum flavum [...] Jose Hicks D.O. AP: AP Report ID: [id number] Reading Location: [place] [address] Cayden Ahmadi MD IMG MRI PROCEDURES Rosa l Result * CT Neck Soft Tissue W Contrast (01/04/2025 12:06 PM PROJECT MANAGER ENTERTAINMENT AND MEDIA) Anatomical Region Laterality Modality Head and Neck N/A Computed Tomogra phy 01/04/2025 12:2 2 PM PROJECT MANAGER ENTERTAINMENT AND MEDIA Impressions 01/04/2025 12:22 PM PROJECT MANAGER ENTERTAINMENT AND MEDIA SIMILAR APPEARANCE TO PREVIOUS WITH ASYMMETRIC APPEARANCE THE LOWER POLE OF THE LEFT SUBMANDIBULAR GLAND WITH MILDLY EXPANSILE LOW-ATTENUATION MASSLIKE LESION WITHOUT ADENOPATHY. 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 FINDINGS: Comparison is made with study of 02/03/2024. Hedis Coordinator radiograph demonstrates patient to be partially edentulous. Mild cervical spondylosis with normal alignment the cervical spine. Prevertebral soft tissues normal. On the transaxial images: Visualized intracranial cavity normal. Normal [place] of [place]. Orbits normal. Nasopharyngeal and parapharyngeal [...] Comparison is made with study of 02/03/2024. Hedis Coordinator radiograph demonstrates patient to be partially edentulous. Mild cervical spondylosis with normal alignment the cervical spine. Prevertebral soft tissues normal. On the transaxial images: Visualized intracranial cavity normal. Normal [place] of [place]. Orbits normal. Nasopharyngeal and parapharyngeal [...] * (ABNORMAL) PSA screen (10/26/2024 9:17 AM PROJECT MANAGER ENTERTAINMENT AND MEDIA) PSA-Total 5.57(H) <=3.90 ng/mL Comment: Interpretive Data [...] last revised 22. Blood 10/26/2024 9:17 AM PROJECT MANAGER ENTERTAINMENT AND MEDIA 10/26/2024 10:30 AM PROJECT MANAGER ENTERTAINMENT AND MEDIA Maik Leija MD LAB BLOOD ORDERABLES Fin al Result Performing Organization Address City/State/[facility] Co de Phone Number [facility] [address] [facility] Department of Laboratories [place], [place] [id number] * COLONOSCOPY (11/14/2021 1:05 PM PROJECT MANAGER ENTERTAINMENT AND MEDIA) Anatomical Region Laterality Modality Other Narrative Procedure Note Kt Osorio MD - 11/14/2021 1:05 PM CST [facility] Patient Name: Clive Riojas Procedure Date: 11/14/2021 1:05 PM Date of : 1970 Admit Type: Outpatient Age: 51 Gender: Male Attending MD: Kt Osorio M.D. Room: [facility] ENDOSCOPY ROOM 2 Note Status: Finalized Patient [...] passed under direct vision.The Pediatric Colonoscope [id number]-[id number] was introduced through the anus and advanced [...] bowel preparation was evaluated using the BBPS ([place] Bowel Preparation Scale) with scores of: Right [...] 1:05 PM Procedure Code(s): --- Professional --- 38104, Colonoscopy, flexible; diagnostic, including collection of specimen(s) by brushing or washing, when performed (separateprocedure) CPT copyright 2019 [employer]. All rights reserved. The codes documented in this report are preliminary and upon envelope folder reviewmay be revised to meet current compliance requirements. Recognized by the [employer] for promoting quality in endoscopy Kt Osorio MD ENDOSCOPY PROCED URES Final Result from Last 3 Months or Most Recently Relevant to Health Maintenance Insurance MEDICARE IDPA AETNA SIG [id number] MEDICARE [facility] Advance Directives For more information, please contact: [phone] * Full Code (Latest Code Status on [...] 12:36 PM 11/14/2021 6:44 PM Care Teams Assembler Metal Building Relationship Specialty [place] [id number] [facility] [address] [place] [address] PCP - General Internal Medicine 10/27/24 Dawna Heredia, PT Physical Therapist Physical Therapy 08/28/22 Dony Mendoza, OT Occupational Therapist Occupational Therapy 04/02/23 Sundeep Coe Jr., MD [address] [place] [address] Consulting Physician Neurology 01/06/24 Brooklyn Elizondo DO [address] [place] [address] DR ESCALANTE B [address] [address] Consulting Physician Otolaryngology 05/11/24 [place] [id number] [address] [facility] [address] [place] [address] Surgeon Colon and Rectal Surgery 12/14/24
--- OUTSIDE RECORDS SUMMARY | 2025-03-31 13:56 | XMS_ITS | Clinical Summary ---
Author Organization [facility] Address [address] [place] [address] Phone Care Team Providers Care Donations Attendant Name Role Phone Kristal Wolf APRN, ARIAS Primary Care Provider + Allergies Active Allergy Reactions Criticality Noted Date Comments Penicillins Rash 10/07/2016 Medications amLODIPine (NORVASC) 10 MG Tablet Take 10 mg by mouth daily. Active Active Problems No known active problems Family History Medical History Relation Name Comments No Known Problems Brother No Known Problems Father No Known Problems Maternal Grandfather No Known Problems Maternal Grandmother No Known Problems Mother No Known Problems Other No Known Problems Paternal Grandfather No Known Problems Paternal Grandmother No Known Problems Sister Relation Name Status Comments Brother Father Maternal Grandfather Maternal Grandmother Mother Other Paternal Grandfather Paternal Grandmother Sister Social History Tobacco Use Types Packs/Day Years Used Date Smoking Tobacco: Never Smokeless Tobacco: Never Tobacco Cessation:Counseling Given: No Alcohol Use Standard Drinks/Week Comments No 0 (1 standard drink = 0.6 oz pur e alcohol) no drinks for 1 year Sex and Gender Information Value Date Recorded Sex Assigned at Not on file 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 Gender Identity Not on file Sexual Orientation Not on file Last Filed Vital Signs Vital Sign Reading Time Taken Comments Blood Pressure 132/88 11/11/2017 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 Pulse 83 11/11/2017 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 Temperature 36 C (96.8 F) 11/11/2017 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 Respiratory Rate 20 11/11/2017 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 Oxygen Saturation 97% 11/11/2017 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 Inhaled Oxygen Concentration - - Weight 65.3 kg (144 lb) 11/11/2017 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 Height 170.2 cm (5' 7 ) 11/11/2017 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 Body Mass Index 22.55 11/11/2017 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 Plan of Treatment Health Maintenance Due Date Last Done Comments Hepatitis C Virus (HCV) Screening 1968 TdaP Immunization 1968 Hepatitis B Immunization (1 of 3 - 19+ 3-dose series) 1987 Colonoscopy 2013 Colorectal Cancer Screening 2013 Cologuard 2018 Immunochemical Fecal Occult Blood 2018 Pneumococcal Immunization (5 0+ years) (1 of 1 - PCV) 2018 Zoster Immunization (1 of 2) 2018 PSA Discussion 2023 Influenza Immunization (#1) 2024 SARS-COV-2 Immunization ( - season) 2024 Respiratory Syncytial Virus (RSV) Immunization (Adult) (1 - 1-dose 75+ series) 2043 Meningococcal Immunization (ACWY) Aged Out No longer eligible based on patient's age to complete this topic Pneumococcal Immunization Combined Aged Out No longer eligible based on patient's age to complete this topic Rotavirus Immunization Aged Out No lo nger eligible based on patient's age to complete this topic Care Teams Donations Attendant Relationship Specialty Start Date End Date Kristal Wolf, VENDOR MANAGER, [employer] [address] [address] PCP - General Advanced Practice Nurse 10/07/16
== END 2025-03-31 13:03 | disposition home or self-care (01) ==
PROVIDERS: PCP Internal Medicine Geriatric Medicine; Visit Provider Urology
DX: C61 Malignant neoplasm of prostate (principal); I71.20 Thoracic aortic aneurysm, without rupture, unspecified; J43.9 Emphysema, unspecified
CPT/HCPCS: 78815; A9596